=== PATIENT | female | born 1990 | race Caucasian/White ===

== ENCOUNTER 2016-11-23 15:53 | Emergency (ER) | payer OTHER ==
[~2016-11-23] VITALS: Ht 162.6 cm; Wt 50.0 kg
[~2016-11-23 15:53] MED LIST: CYAN100015 IM; LAMI200T PO; LEVO88TA2 PO; LITH300C2 PO; LORA-392 PO; NU-IRON PO; OLANZ20 SL; ZYPR20TA PO; [UNRECOGNIZED DRUG - CODE] PO
[2016-11-23 16:09] VITALS: BP 156/96; PULSE 74; RESP 17; TEMP 98.3; O2SAT 98
[2016-11-23 16:52] LABS: AUTOMATED NEUTROPHIL # 6.8 TH/MM3 (1.8-7.7); BASOPHIL # 0.1 TH/MM3 (0-0.2); BASOPHIL % 0.7 % (0.0-2.0); EOSINOPHIL # 0.1 TH/MM3 (0-0.4); HEMO FLAGS DIFF FINAL; LYMPHOCYTE # 1.9 TH/MM3 (1.0-4.8); MEAN CELL VOLUME 91.3 FL (80.0-100.0); MEAN CORPUSCULAR HEMOGLOBIN 30.5 PG (27.0-34.0); MEAN CORPUSCULAR HGB CONC 33.5 % (32.0-36.0); MONO % 4.9 % (0.0-8.0); NEUT % 73.4 % (16.0-70.0); PLATELET COUNT 357 TH/MM3 (150-450); RED CELL DISTRIBUTION WIDTH 12.8 % (11.6-17.2); WHITE BLOOD COUNT 9.3 TH/MM3 (4.0-11.0)
[2016-11-23 17:18] LABS: ALKALINE PHOSPHATASE 80 U/L (45-117); ALT (GPT) 21 U/L (10-53); ANION GAP 8 MEQ/L (5-15); AST (GOT) 12 U/L (15-37); BLOOD UREA NITROGEN 10 MG/DL (7-18); CHLORIDE 106 MEQ/L (98-107); GLOMERULAR FILTRATION RATE 71 ML/MIN (>89); POTASSIUM 3.7 MEQ/L (3.5-5.1); SODIUM (NA) 141 MEQ/L (136-145); TOTAL BILIRUBIN ADULT 0.3 MG/DL (0.2-1.0)
[2016-11-23 18:42] LABS: AMPHETAMINE, URINE NEG (NEG); BARBITURATES, URINE NEG (NEG); COCAINE, URINE NEG (NEG)
--- NOTE | 2016-11-23 19:06 | PD ---
HPI Chief Complaint: Psychiatric Symptoms Time Seen by Provider: 18:45 Travel History International Travel<30 days: No Contact w/Intl Traveler<30days: No Traveled to known affect area: No History of Present Illness HPI Patient is a 26-year-old female who presents emergency Department under Morales act for suicidal homicidal ideations. Patient states that she's been hearing voices that are telling her to kill herself in her housemates. She states this makes her scared and nervous. She wants to get help so she doesn't do these things. She states that the voices also tell her to hit her head on the floor. She denies any physical complaints at this time. She denies any previous suicide attempt, she denies any formal psychiatric diagnosis in the past. [facility] Past Medical History Anxiety: Yes Cerebrovascular Accident: Yes (at ) Developmental Delay: Yes Diminished Hearing: No Endocrine: No Genitourinary: No Immune Disorder: No Musculoskeletal: No Neurologic: Yes (right hand contracture) Reproductive: No Respiratory: No Immunizations Current: Yes Migraines: No Pancreatitis: Yes Schizophrenia: Yes (HEARING HALLUCINATION SINCE 10 YEARS OLD ) ?: Unknown Past Surgical History Cholecystectomy: Yes Thoracic Surgery: Yes (G-TUBE INSERTION AND REMOVAL) Other Surgery: Yes Social History Alcohol Use: No Tobacco Use: No Substance Use: No Allergies-Medications (Allergen,Severity, Reaction): Coded Allergies: Seafood (Verified Allergy, Severe, Anaphylaxis, 10/16/16) Reported Meds & Prescriptions Reported Meds & Active Scripts Active Zyprexa Zydis (Olanzapine) 20 Mg Tab 20 Mg SL HS [place] Carbonate 300 Mg Cap 300 Mg PO 3 HS Zyprexa (Olanzapine) 20 Mg Tab 20 Mg PO HS Ativan (Lorazepam) 0.5 Mg Tab 0.5 Mg PO BID Lamictal (Lamotrigine) 200 Mg Tab 200 Mg PO BID Levothyroxine (Levothyroxine Sodium) 88 Mcg Tab 88 Mcg PO DAILY Poly-Iron 150 (Polysaccharide Iron Complex) 150 Mg Cap 150 Mg PO DAILY B-12 (Cyanocobalamin) 1,000 Mcg Lozg 1,000 Mcg IM Q30 DAYS Polyethylene Glycol 3350 (Polyethylene Glycol 3350 (Bulk) 1 Gra Gra 3,350 Meq PO DAILY 30 Days Review of Systems Except as stated in HPI: all other systems reviewed are Neg Neurologic: Positive: Other (fracture right upper extremity/ hand) Psychiatric: Positive: Anxiety, Suicidal Ideations, Mood Disorder, Homicidal Ideation Physical Exam Narrative GENERAL: Well-developed, well-nourished, alert female. Resting comfortably in no acute distress. SKIN: Warm and dry. HEAD: Atraumatic. Normocephalic. EYES: Pupils equal and round. No scleral icterus. No injection or drainage. ENT: No nasal bleeding or discharge. Mucous membranes pink and moist. NECK: Trachea midline. No JVD. CARDIOVASCULAR: Regular rate and rhythm. No murmur appreciated. RESPIRATORY: No accessory muscle use. Clear to auscultation. Breath sounds equal bilaterally. GASTROINTESTINAL: Abdomen soft, non-tender, nondistended. Hepatic and splenic margins not palpable. MUSCULOSKELETAL: No obvious deformities. No clubbing. No cyanosis. No edema. NEUROLOGICAL: Awake and alert. No obvious cranial nerve deficits. Motor grossly within normal limits. Normal speech. Right upper extremity contracture. Slight right facial drooping PSYCHIATRIC: Appropriate mood and affect; insight and judgment normal. Data Data Last Documented VS Vital Signs Date Time Temp Pulse Resp B/P Pulse Ox O2 Delivery O2 Flow Rate FiO2 11/23/16 16:09 98.3 74 17 156/96 98 Orders Complete Blood Count With Diff (11/23/16 16:38) Comprehensive Metabolic Panel (11/23/16 16:38) Drug Screen, Random Urine (11/23/16 16:38) Alcohol (Ethanol) (11/23/16 16:38) Psych Screen (11/23/16 16:38) Diet Regular Basic (11/23/16 Dinner) Labs Laboratory Tests Test 11/23/16 11/23/16 16:37 18:20 White Blood Count 9.3 TH/MM3 Red Blood Count 4.60 MIL/MM3 Hemoglobin 14.1 GM/DL Hematocrit 42.0 % Mean Corpuscular Volume 91.3 FL Mean Corpuscular Hemoglobin 30.5 PG Mean Corpuscular Hemoglobin 33.5 % Concent Red Cell Distribution Width 12.8 % Platelet Count 357 TH/MM3 Mean Platelet Volume 7.0 FL Neutrophils (%) (Auto) 73.4 % Lymphocytes (%) (Auto) 20.0 % Monocytes (%) (Auto) 4.9 % Eosinophils (%) (Auto) 1.0 % Basophils (%) (Auto) 0.7 % Neutrophils # (Auto) 6.8 TH/MM3 Lymphocytes # (Auto) 1.9 TH/MM3 Monocytes # (Auto) 0.5 TH/MM3 Eosinophils # (Auto) 0.1 TH/MM3 Basophils # (Auto) 0.1 TH/MM3 CBC Comment DIFF FINAL Differential Comment Sodium Level 141 MEQ/L Potassium Level 3.7 MEQ/L Chloride Level 106 MEQ/L Carbon Dioxide Level 27.0 MEQ/L Anion Gap 8 MEQ/L Blood Urea Nitrogen 10 MG/DL Creatinine 0.96 MG/DL Estimat Glomerular Filtration 71 ML/MIN Rate Random Glucose 127 MG/DL Calcium Level 9.4 MG/DL Total Bilirubin 0.3 MG/DL Aspartate Amino Transf 12 U/L (AST/SGOT) Alanine Aminotransferase 21 U/L (ALT/SGPT) Alkaline Phosphatase 80 U/L Total Protein 7.5 GM/DL Albumin 3.7 GM/DL Ethyl Alcohol Level LESS THAN 3 MG/DL Urine Opiates Screen NEG Urine Barbiturates Screen NEG Urine Amphetamines Screen NEG Urine Benzodiazepines Screen NEG Urine Cocaine Screen NEG Urine Cannabinoids Screen NEG MDM Medical Decision Making Medical Screen Exam Complete: Yes Emergency Medical Condition: Yes Interpretation(s) Vital Signs Date Time Temp Pulse Resp B/P Pulse Ox O2 Delivery O2 Flow Rate FiO2 11/23/16 16:09 98.3 74 17 156/96 98 Differential Diagnosis Mood disorder versus substance abuse versus schizophrenia versus delirium versus psychosis versus other Narrative Course Patient's 26-year-old female who presents emergency Department under Morales act for suicidal and homicidal ideations. Patient appears nervous that she is actually going to follow through with these thoughts. Patient states that the voices in her head are telling her to do these things. She has no other complaints at this time. CBC, chemistry, tox screen are unremarkable. Patient' s vital signs are stable. Patient is medically cleared for psychiatric evaluation at this time. Diagnosis Primary Impression: Medical clearance for psychiatric admission Additional Impressions: Suicidal ideations Homicidal ideation Condition: Stable Lindsay Hernandez Nov 23, 2016 19:06
[2016-11-23 19:31] VITALS: BP 160/96; PULSE 80; RESP 18; O2SAT 98
[2016-11-23] MEDS ORDERED: CLIN1GEL TOPICAL (20:32)
[2016-11-23] MEDS ORDERED: D 101000 (20:40)
[2016-11-23] MEDS ORDERED: LEVOTAB25 PO (20:40)
[2016-11-23] MEDS ORDERED: PREV5000 PO (20:40)
[2016-11-23 22:46] VITALS: BP 116/56; PULSE 81; RESP 17; O2SAT 98
[2016-11-24 02:37] VITALS: BP 129/65; PULSE 52; RESP 17; O2SAT 100
[2016-11-24 06:31] VITALS: BP 107/61; PULSE 61; RESP 17; O2SAT 97
[2016-11-24 10:38] VITALS: BP 143/88; PULSE 87; RESP 18; O2SAT 97
[2016-11-24 14:05] VITALS: BP 142/83; PULSE 78; RESP 18; O2SAT 99
--- NOTE | 2016-11-24 14:39 | PD ---
History of Present Illness Chief Complaint: Psychiatric Symptoms Time Seen by Provider: 14:15 Travel History International Travel<30 Days: No Contact w/Intl Traveler<30days: No Known affected area: No Legal Status Legal Status: Morales Act Morales Act Signed By: Elena Aponte History of Present Illness: History of Present Illness Patient is a 26-year-old female with hx of disruptive mood regulation as well as mood disorder who presents emergency Department under Morales act initiated by ROSINA . As per the report the patient reported hearing voices that are telling her to kill herself. She told the police detective that she was banging her head against a dresser. Patient has had previous visits to ED for similar behaviors. She currently lives in a care home and is unhappy because she is going to be moving to another home soon. Patient was monitored in [facility]. She did not present any behavioral concerns. there was no agitation and no self harming behaviors. She did not present any psychosis.She is alert and oriented. Engages easily with this credit underwriter and frequently states " I'm not fibbing". She states that she needs " to be inpatient for a while because I am under stress". She does not verbalize any current suicidal ideation but states " I don't know if the voices will get worse and I will fell suicidal when I'm in the home". Staff has contacted her mother who is her guardian and who is strongly advocating for us not to hospitalize her as this is a behavior and attention seeking on her part. PFSH Past Medical History Anxiety: Yes Cerebrovascular Accident: Yes (at ) Developmental Delay: Yes Diminished Hearing: No Endocrine: No Genitourinary: No Immune Disorder: No Musculoskeletal: No Neurologic: Yes (right hand contracture) Reproductive: No Respiratory: No Immunizations Current: Yes Migraines: No Pancreatitis: Yes Schizophrenia: Yes (HEARING HALLUCINATION SINCE 10 YEARS OLD ) ?: Unknown Past Surgical History Cholecystectomy: Yes Thoracic Surgery: Yes (G-TUBE INSERTION AND REMOVAL) Other Surgery: Yes Psychiatric History Psychiatric History Hx Psychiatric Treatment: HX OF SCHIZOPHRENIA AND DYSRUPTIVE MOOD D/O. CURRENTLY BEING TREATED WITH PSYCHIATRIC MEDS History of Inpatient Treatment: Yes Guns or firearms in home: No Social History Single female. Lives in a care home. Never . Hx Alcohol Use: No Hx Tobacco Use: No Hx Substance Use: No Hx of Substance Use Treatment: No Allergies-Medications (Allergen,Severity, Reaction): Coded Allergies: Seafood (Verified Allergy, Severe, Anaphylaxis, 11/24/16) Reported Meds & Prescriptions Reported Meds & Active Scripts Active Zyprexa Zydis (Olanzapine) 20 Mg Tab 20 Mg SL HS [place] Carbonate 300 Mg Cap 300 Mg PO 3 HS Ativan (Lorazepam) 0.5 Mg Tab 0.5 Mg PO BID Lamictal (Lamotrigine) 200 Mg Tab 200 Mg PO BID Levothyroxine (Levothyroxine Sodium) 88 Mcg Tab 88 Mcg PO DAILY Poly-Iron 150 (Polysaccharide Iron Complex) 150 Mg Cap 150 Mg PO DAILY B-12 (Cyanocobalamin) 1,000 Mcg Lozg 1,000 Mcg IM Q30 DAYS Polyethylene Glycol 3350 (Polyethylene Glycol 3350 (Bulk) 1 Gra Gra 3,350 Meq PO DAILY 30 Days Reported D 1000 (Cholecalciferol) 1,000 Unit Cap [place] (Levonorgestrel-Ethinyl Estradiol) 0.15-0.03-0.01 Mg Tab 1 Tab PO DAILY Prevident 5000 Sensitive 1.1-5 % (Sodium Fluoride-Potassium Nitr) 1 Pst Pst Unknown Dose PO HS Clindamycin Topical (Clindamycin Phosphate) 1% Gel 1 Applic TOPICAL BID Review of Systems Constitutional: DENIES: Diaphoretic episodes, Fatigue, Fever, Weight gain, Weight loss, Chills, Dizziness, Change in appetite, Night Sweats Endocrine: DENIES: Abnorml menstrual pattern, Heat/cold intolerance, Polydipsia , Polyuria, Polyphagia Eyes: DENIES: Blurred vision, Diplopia, Eye inflammation, Eye pain, Vision loss , Photosensitivity, Double Vision Ears, nose, mouth, throat: DENIES: Tinnitus, Hearing loss, Vertigo, Nasal discharge, Oral lesions, Throat pain, Hoarseness, Ear Pain, Running Nose, Epistaxis, Sinus Pain, Toothache, Odynophagia Respiratory: DENIES: Apneas, Cough, Snoring, Wheezing, Hemoptysis, Sputum production, Shortness of breath Cardiovascular: DENIES: Chest pain, Palpitations, Syncope, Dyspnea on Exertion , PND, Lower Extremity Edema, Orthopnea, Claudication Gastrointestinal: DENIES: Abdominal pain, Black stools, Bloody stools, Constipation, Diarrhea, Nausea, Vomiting, Difficulty Swallowing, Anorexia Genitourinary: DENIES: Abnormal vaginal bleeding, Dysmenorrhea, Dyspareunia, Sexual dysfunction, Urinary frequency, Urinary incontinence, Urgency, Hematuria , Dysuria, Nocturia, Vaginal discharge Musculoskeletal: COMPLAINS OF: Muscle aches Integumentary: DENIES: Abnormal pigmentation, Pruritus, Rash, Nail changes, Breast masses, Breast skin changes, Nipple discharge Hematologic/lymphatic: DENIES: Bruising, Lymphadenopathy Neurologic: COMPLAINS OF: Abnormal gait (has CP) Psychiatric: COMPLAINS OF: Mood changes Exam Alert: Yes [place]: Person (ox3) Mood: Calm Affect: Euthymic Speech: Clear Eye Contact: Normal Memory Intact: Comment (not impaired) Hallucinations: Other (negative) Delusions: No Suicidal: Ideation (no active) Homicidal: Ideation (no active) Insight/Judgement poor. poor MDM Medical Decision Making Medical Record Reviewed: Yes Assessment/Plan 26 year old female under a bA. at this time this patietn does not present any criteria for BA. She does not present any acute psychiatric symptomatology requiring [facility] At this time she will be discharged to care home Follow up with outpatient psychiatrist. Orders Complete Blood Count With Diff (11/23/16 16:38) Comprehensive Metabolic Panel (11/23/16 16:38) Drug Screen, Random Urine (11/23/16 16:38) Alcohol (Ethanol) (11/23/16 16:38) Psych Screen (11/23/16 16:38) Diet Regular Basic (11/23/16 Dinner) Diet Regular Basic (11/24/16 Breakfast) Diet Regular Basic (11/24/16 Lunch) Diet Regular Basic (11/24/16 Dinner) Results Vital Signs Date Time Temp Pulse Resp B/P Pulse Ox O2 Delivery O2 Flow Rate FiO2 11/24/16 14:05 78 18 142/83 99 Room Air 11/24/16 10:38 87 18 143/88 97 Room Air 11/24/16 06:31 61 17 107/61 97 11/24/16 02:37 52 17 129/65 100 Room Air 11/23/16 22:46 81 17 116/56 98 Room Air 11/23/16 19:31 80 18 160/96 98 Room Air 11/23/16 16:09 98.3 74 17 156/96 98 Laboratory Tests Test 11/23/16 11/23/16 16:37 18:20 White Blood Count 9.3 Red Blood Count 4.60 Hemoglobin 14.1 Hematocrit 42.0 Mean Corpuscular Volume 91.3 Mean Corpuscular Hemoglobin 30.5 Mean Corpuscular Hemoglobin 33.5 Concent Red Cell Distribution Width 12.8 Platelet Count 357 Mean Platelet Volume 7.0 Neutrophils (%) (Auto) 73.4 Lymphocytes (%) (Auto) 20.0 Monocytes (%) (Auto) 4.9 Eosinophils (%) (Auto) 1.0 Basophils (%) (Auto) 0.7 Neutrophils # (Auto) 6.8 Lymphocytes # (Auto) 1.9 Monocytes # (Auto) 0.5 Eosinophils # (Auto) 0.1 Basophils # (Auto) 0.1 CBC Comment DIFF FINAL Differential Comment Sodium Level 141 Potassium Level 3.7 Chloride Level 106 Carbon Dioxide Level 27.0 Anion Gap 8 Blood Urea Nitrogen 10 Creatinine 0.96 Estimat Glomerular Filtration 71 Rate Random Glucose 127 Calcium Level 9.4 Total Bilirubin 0.3 Aspartate Amino Transf 12 (AST/SGOT) Alanine Aminotransferase 21 (ALT/SGPT) Alkaline Phosphatase 80 Total Protein 7.5 Albumin 3.7 Ethyl Alcohol Level LESS THAN 3 Urine Opiates Screen NEG Urine Barbiturates Screen NEG Urine Amphetamines Screen NEG Urine Benzodiazepines Screen NEG Urine Cocaine Screen NEG Urine Cannabinoids Screen NEG Diagnosis Primary Impression: Disruptive mood dysregulation disorder Additional Impression: Suicidal ideations Ruled Out: Homicidal ideation Psychiatrically Cleared: Yes Disposition: 01 DISCHARGE HOME Condition: Stable Problem Qualifiers Xiomara Fermin Nov 24, 2016 14:39
== END 2016-11-24 16:50 | disposition home or self-care (01) ==
LOC: NEPJ 15:53
DX: F34.81 Disruptive mood dysregulation disorder (principal)
CPT/HCPCS: 80053; 80307; 80320; 85025; 99283

== ENCOUNTER 2016-11-24 20:27 | Emergency (ER) | payer OTHER ==
[~2016-11-24] VITALS: Ht 154.9 cm; Wt 55.0 kg
[~2016-11-24 20:27] MED LIST changes: +CLIN1GEL TOPICAL; +D 101000; +LEVOTAB25 PO; +PREV5000 PO; -ZYPR20TA PO
--- NOTE | 2016-11-24 20:47 | PD ---
HPI Chief Complaint: psych Time Seen by Provider: 20:45 Travel History International Travel<30 days: No Contact w/Intl Traveler<30days: No History of Present Illness HPI 26-year-old female with a history of schizophrenia presents to the emergency Department under Morales act for suicidal and homicidal ideations. The patient states that she has recently begun to hear voices in her head that tell her to harm herself and to harm the other people at her correction. She denies any attempts to harm herself, denies any ingestion of substances. She complains of mild headache. She denies any fever, chills, nausea, vomiting, chest pain, shortness breath, abdominal pain, lightheadedness, dizziness. Denies alcohol or drug use. Denies . No other complaints. PFSH Past Medical History Anxiety: Yes Cerebrovascular Accident: Yes (at ) Developmental Delay: Yes Diminished Hearing: No Endocrine: No Genitourinary: No Immune Disorder: No Musculoskeletal: No Neurologic: Yes (right hand contracture) Reproductive: No Respiratory: No Immunizations Current: Yes Migraines: No Pancreatitis: Yes Schizophrenia: Yes (HEARING HALLUCINATION SINCE 10 YEARS OLD ) Past Surgical History Cholecystectomy: Yes Thoracic Surgery: Yes (G-TUBE INSERTION AND REMOVAL) Other Surgery: Yes Social History Alcohol Use: No Tobacco Use: No Substance Use: No Allergies-Medications (Allergen,Severity, Reaction): Coded Allergies: Seafood (Verified Allergy, Severe, Anaphylaxis, 10/16/16) Reported Meds & Prescriptions Reported Meds & Active Scripts Active Zyprexa Zydis (Olanzapine) 20 Mg Tab 20 Mg SL HS [place] Carbonate 300 Mg Cap 300 Mg PO 3 HS Ativan (Lorazepam) 0.5 Mg Tab 0.5 Mg PO BID Lamictal (Lamotrigine) 200 Mg Tab 200 Mg PO BID Levothyroxine (Levothyroxine Sodium) 88 Mcg Tab 88 Mcg PO DAILY Poly-Iron 150 (Polysaccharide Iron Complex) 150 Mg Cap 150 Mg PO DAILY B-12 (Cyanocobalamin) 1,000 Mcg Lozg 1,000 Mcg IM Q30 DAYS Polyethylene Glycol 3350 (Polyethylene Glycol 3350 (Bulk) 1 Gra Gra 3,350 Meq PO DAILY 30 Days Reported D 1000 (Cholecalciferol) 1,000 Unit Cap [place] (Levonorgestrel-Ethinyl Estradiol) 0.15-0.03-0.01 Mg Tab 1 Tab PO DAILY Prevident 5000 Sensitive 1.1-5 % (Sodium Fluoride-Potassium Nitr) 1 Pst Pst Unknown Dose PO HS Clindamycin Topical (Clindamycin Phosphate) 1% Gel 1 Applic TOPICAL BID Review of Systems Except as stated in HPI: all other systems reviewed are Neg Physical Exam Narrative GENERAL: Well-nourished and well-developed pleasant female patient in no acute distress. SKIN: Warm and dry. HEAD: Normocephalic and atraumatic. EYES: No injection, drainage, or hyphema noted. PERRLA. EOMI. ENT: No nasal drainage noted. Oropharynx is clear. NECK: Supple and the trachea is midline. CARDIOVASCULAR: Regular rate and rhythm. RESPIRATORY: Breath sounds are equal bilaterally with no accessory muscle use, wheezing, rhonchi, or crackles. GASTROINTESTINAL: Abdomen is soft, non-tender, and nondistended. MUSCULOSKELETAL: No obvious deformities, swelling, cyanosis, or ecchymosis is present throughout the upper and lower extremities. Patient has full range of motion without any signs of neurovascular compromise. NEUROLOGICAL: Awake, alert, and oriented. Normal speech and gait. Cranial nerves are grossly intact. Data Data Orders Complete Blood Count With Diff (11/24/16 20:44) Comprehensive Metabolic Panel (11/24/16 20:44) Drug Screen, Random Urine (11/24/16 20:44) Ed Urine Pregnancytest Poc (11/24/16 20:44) Alcohol (Ethanol) (11/24/16 20:44) Psych Screen (11/24/16 20:44) MDM Medical Decision Making Medical Screen Exam Complete: Yes Emergency Medical Condition: Yes Differential Diagnosis Differential: Depression versus adjustment reaction versus anxiety versus PTSD versus psychosis NOS versus mood disorder NOS versus substance induced mood disorder versus ODD versus adjustment reaction versus schizophrenia versus bipolar disorder versus schizoaffective versus electrolyte abnormality versus dementia versus malingering. Narrative Course Patient presents under a Morales act. Physical examination and vital signs are essentially unremarkable. Patient has no medical complaints to report. Psych screen has been ordered. If the laboratory results are unremarkable, the patient will be medically cleared for psychiatric evaluation and disposition. Diagnosis Primary Impression: Schizophrenia, paranoid type Ayleen Mercer Nov 24, 2016 20:47
[2016-11-24 20:52] VITALS: BP 154/79; PULSE 70; RESP 16; TEMP 98.2; O2SAT 100
[2016-11-24 21:04] LABS: AUTOMATED NEUTROPHIL # 6.8 TH/MM3 (1.8-7.7); BASOPHIL # 0.1 TH/MM3 (0-0.2); BASOPHIL % 0.8 % (0.0-2.0); EOSINOPHIL # 0.1 TH/MM3 (0-0.4); HEMATOCRIT 40.5 % (35.0-46.0); HEMO FLAGS DIFF FINAL; LYMPH % 23.9 % (9.0-44.0); LYMPHOCYTE # 2.4 TH/MM3 (1.0-4.8); MEAN CELL VOLUME 89.9 FL (80.0-100.0); MEAN CORPUSCULAR HEMOGLOBIN 30.6 PG (27.0-34.0); NEUT % 67.3 % (16.0-70.0); PLATELET COUNT 395 TH/MM3 (150-450); RED BLOOD COUNT 4.51 MIL/MM3 (4.00-5.30); RED CELL DISTRIBUTION WIDTH 12.6 % (11.6-17.2)
[2016-11-24 21:24] LABS: ANION GAP 8 MEQ/L (5-15)
[2016-11-24 21:27] LABS: ALKALINE PHOSPHATASE 75 U/L (45-117); ALT (GPT) 20 U/L (10-53); AST (GOT) 12 U/L (15-37); BLOOD UREA NITROGEN 9 MG/DL (7-18); CHLORIDE 106 MEQ/L (98-107); GLOMERULAR FILTRATION RATE 83 ML/MIN (>89); POTASSIUM 3.6 MEQ/L (3.5-5.1); SODIUM (NA) 141 MEQ/L (136-145); TOTAL BILIRUBIN ADULT 0.3 MG/DL (0.2-1.0)
[2016-11-24 22:50] LABS: AMPHETAMINE, URINE NEG (NEG); BARBITURATES, URINE NEG (NEG); COCAINE, URINE NEG (NEG)
[2016-11-25 06:05] VITALS: BP 151/99; PULSE 70; RESP 18; O2SAT 98
[2016-11-25 08:25] VITALS: BP 173/100; PULSE 77; RESP 20; TEMP 98.4; O2SAT 98
--- NOTE | 2016-11-25 13:23 | PD.CONS ---
Provisional Diagnosis Admission Date 11/24/2016 Cameron I. 1. Adjustment disorder, unspecified 2. History of schizophrenia, presently stable Cameron II. Deferred Cameron V. GAF is 45 presently History of Present Illness Service Psychiatry Consult Requested By Emergency department Reason for Consult Morales act Primary Care Physician Stephanie Dutton MD HPI Ms. Sam is a 26-year-old female with a history of adjustment disorder and schizophrenia who presents under a Morales act alleging that the patient was hiding in the closet and was endorsing auditory hallucinations. The patient was evaluated yesterday in the emergency department by nurse practitioner Zander and returned to her correction at that time. Patient is well known to me; she has a history endorsing command auditory hallucinations as an attention seeking ploy and was last hospitalized, in part under my care, in July of last year. Electronic medical record reviewed. Patient seen and examined. Chart reviewed. Case discussed with nurse in the J- pod. Per nursing staff, no evidence of any suicidality or homicidality while under observation in the J-pod. She has not appeared to act upon any auditory hallucinations while in the J-pod. On my examination today, the patient appears euthymic. She does not appear internally stimulated. She says that she is experiencing "voices, adult voices." She insinuates, although she does not explicitly say, that these are command in nature. She denies any desire to injure herself or others. She denies any suicidal or homicidal planning. No issues with mood. Patient appears generally to be at her psychiatric baseline. She does admit that there has been some stress at her correction and also her outpatient psychiatrist, Dr. Dillon, has recently closed his outpatient practice. I note his last visit with patient was about a week ago. Past psychiatric, family, chemical dependency and social history are unchanged from previous encounters. I have obtained collateral from patient's mother Ms. Holcomb. Mother articulates that patient's behaviors that led to her being Morales acted are, in mother's opinion, part of patient's typical attention seeking ploys. She notes , in particular, that they are "same old, same old." Mother notes that she is working with patient's current correction to have the patient moved to a higher level correction where they can more intensively apply patient's behavior plan to cope with her attention seeking behaviors. It is mother's strong preference that the patient be returned to her correction today so as not to reinforce patient's attention seeking behaviors. Review of Systems ROS Limitations: Poor Historian Other No reported physical complaints. Past Family Social History Coded Allergies: Seafood (Verified Allergy, Severe, Anaphylaxis, 11/24/16) Past Medical History See electronic medical record Active Scripts Olanzapine Odt (Zyprexa Zydis)20 Mg Tab20 Mg SL HS #30 TAB Ref 2 Prov:Donny Dillon MD 11/18/16 [place] Carbonate 300 Mg [id number] Mg PO 3 hs #90 CAP Ref 2 Prov:Donny Dillon MD 11/17/16 Lorazepam (Ativan)0.5 Mg Tab0.5 Mg PO BID #60 TAB Ref 2 Prov:Donny Dillon MD 11/17/16 Lamotrigine (Lamictal)200 Mg [id number] Mg PO BID #60 TAB Ref 2 Prov:Donny Dillon MD 11/17/16 Levothyroxine 88 Mcg Tab88 Mcg PO DAILY #30 TAB Ref 2 Prov:Donny Dillon MD 11/17/16 Polysaccharide Iron Complex (Poly-Iron 150)150 Mg Pzg525 Mg PO DAILY #30 CAP Ref 0 Prov:Donny Dillon MD 09/21/16 Cyanocobalamin (B-12)1,000 Mcg Lozg1,000 Mcg IM q30 days #1 BOTTLE Ref 0 Prov:Donny Dillon MD 09/21/16 Polyethylene Glycol 3350 (Bulk (Polyethylene Glycol 3350)1 Gra Gra3,350 Meq PO DAILY 30 Days Prov:Donny Dillon MD 09/21/16 Reported Medications Cholecalciferol (D 1000)1,000 Unit Cap 11/23/16 Levonorgestrel-Ethinyl Estradiol (Daysee)0.15-0.03-0.01 Mg Tab1 Tab PO DAILY # 91 TAB Ref 0 11/23/16 Sodium Fluoride-Potassium Nitr (Prevident 5000 Sensitive 1.1-5 %)1 Pst PstUnknown Dose PO HS 11/23/16 Clindamycin Topical 1% Gel1 Applic TOPICAL BID #30 GM Ref 0 11/23/16 Discontinued Scripts Olanzapine (Zyprexa)20 Mg Tab20 Mg PO HS #30 TAB Ref 2 Prov:Donny Dillon MD 11/17/16 Family History Unchanged from previous assessments Social History Unchanged from previous assessments Patient's Strengths (min. 2) Supportive mother. Structured living environment. Physical Exam Physical examination completed by ED provider. On my examination today, patient appears to be in no acute physical distress. No new motoric abnormalities noted. Labs and vital signs reviewed. Vital Signs Vital Signs Date Time Temp Pulse Resp B/P Pulse Ox O2 Delivery O2 Flow Rate FiO2 11/25/16 08:25 98.4 77 20 173/100 98 Room Air Lab Results Item Value Date Time White Blood Count 10.0 TH/MM3 11/24/162049 Hemoglobin 13.8 GM/DL 11/24/162049 Platelet Count 395 TH/MM3 11/24/162049 Sodium Level 141 MEQ/L 11/24/162049 Potassium Level 3.6 MEQ/L 11/24/162049 Chloride Level 106 MEQ/L 11/24/162049 Carbon Dioxide Level 27.0 MEQ/L 11/24/162049 Blood Urea Nitrogen 9 MG/DL 11/24/162049 Creatinine 0.84 MG/DL 11/24/162049 Aspartate Amino Transf (AST/SGOT) 12 U/L L 11/24/162049 Alanine Aminotransferase (ALT/SGPT) 20 U/L 11/24/162049 Alkaline Phosphatase 75 U/L 11/24/162049 Urine toxicology negative. Mental Status Examination Patient is in hospital attire. She is fairly well groomed and maintaining basic hygiene. She is awake and alert and oriented to person and hospital. No new motoric abnormalities noted. Speech is within normal limits for rate, tone and volume. Mood is fair and affect is childlike. Thought process linear. No loosening of associations. No evident delusions. Patient describes hallucinatory phenomena as detailed above but does not appear at all internally stimulated. The patient denies any suicidal or homicidal ideation, intent or plan on direct questioning. Insight and judgment are poor, chronically so. Previous Suicide Attempts: No Previous Homicide Attempts: No Assessment & Plan Problem List: (1) Adjustment disorder ICD Code: F43.20 (2) History of schizophrenia ICD Code: Z86.59 Assessment & Plan This is a 26-year-old female with psychiatric history as detailed above who presents under a Morales act from her correction. This is the patient' s second presentation and has many days. The patient is well-known to me and has a history of reporting command auditory hallucinations as an attention seeking ploy. I suspect her reports of these today are more of the same, and I have captured this behavior with the adjustment disorder diagnosis. There is no evidence of any internal stimulation, and the patient denies any desire to injure herself or anyone else, nor does it seem like these purported voices are particularly influential as she has managed to refrain from injuring herself or anyone else during her period of observation in the J-pod. I concur with the patient's mother that admitting the patient to the inpatient psychiatric unit at this time would simply reinforce the undesirable behavior and, as such, be actively counterproductive to patient's treatment plan and case. I will therefore lift the Morales Act and discharge her back to her correction. I see that Dr. Dillon has made provisions for patient's subsequent outpatient care, and the patient should continue her current medications and follow up outpatient as arranged. Patient to return to psychiatric emergency room for any concerning psychiatric symptoms. Case d/w RN in J-Pod. Thank you very much for this consultation. Problem Qualifiers (1) Adjustment disorder: Qualified Code: F43.20 - Adjustment disorder, unspecified type Abhijit Jaramillo MD Nov 25, 2016 13:23
== END 2016-11-25 20:50 | disposition home or self-care (01) ==
LOC: NEPA 20:27 → NEPJ 11-25 20:50
DX: F43.20 Adjustment disorder, unspecified (principal); Z86.73 Personal history of transient ischemic attack (TIA), and cerebral infarction without residual deficits; F20.9 Schizophrenia, unspecified
CPT/HCPCS: 80053; 80307; 80320; 84703; 85025; 99283

== ENCOUNTER 2016-11-26 14:27 | Inpatient (IN) | payer OTHER ==
[~2016-11-26] VITALS: Ht 170.2 cm; Wt 58.9 kg
[2016-11-26 14:29] VITALS: BP 143/91; PULSE 97; RESP 20; TEMP 98; O2SAT 96
[2016-11-26] MEDS ORDERED: BENZTROPINE MESYLATE 1 MG TAB PO PRN (15:00)
[2016-11-26] MEDS ORDERED: ALUMINUM/MAGNESIUM/SIMETH 30 ML CUP PO PRN (15:00)
[2016-11-26] MEDS ORDERED: MAGNESIUM HYDROXIDE SUSP 30 ML CUP PO PRN (15:00)
[2016-11-26] MEDS ORDERED: LORazepam 1 MG TAB PO PRN (15:00)
[2016-11-26] MEDS ORDERED: BENZTROPINE MESYLATE 2 MG/2 ML VIAL IM PRN (15:00)
[2016-11-26] MEDS ORDERED: LORazepam 2 MG/ML VIAL IM PRN (15:00)
[2016-11-26] MEDS ORDERED: diphenhydrAMINE HCL 50 MG CAP PO PRN (15:00)
--- NOTE | 2016-11-26 15:01 | HHI.HP ---
Provisional Diagnosis Admission Date 11/26/2016 Register I. 1. Adjustment disorder, unspecified 2. History of schizophrenia, presently stable Register II. Deferred Register V. GAF is 40 presently Certification of Person's Competence To Provide Express and Informed Consent I have personally examined Yissel Maria , a person being served at [facility] on, Nov 26, 2016 15:01. Express and informed consent means consent voluntarily given in writing, by a competent person, after sufficient explanation and disclosure of the subject matter involved to enable the person to make a knowing and willful decision without any element of force, fraud, deceit, duress, or other form of constraint or coercion. This person is 18 years of age or older, is not now known to be incompetent to consent to treatment with a guardian advocate, and does not have a health care surrogate or proxy currently making medical treatment decisions. I have found this person to be one of the following: [] Competent to provide express and informed consent, as defined above, for voluntary admission to this facility and is competent to provide express and informed consent for treatment. He/she has the consistent capacity to make well reasoned, willful, and knowing decisions concerning his or her medical or mental health treatment. The person fully and consistently understands the purpose of the admission for examination/placement and is fully capable of personally exercising all rights assured [place] [x] Incompetent to provide express and informed consent to voluntary admission, and this is incompetent to provide express and informed consent to treatment. The person must be transferred to involuntary status and a petition for a guardian advocate filed with the Circuit Court. [] Refusing to provide express and informed consent to voluntary admission but is competent to provide express and informed consent for treatment. The person must be discharged or transferred to involuntary status. Form shall be completed within 24 hours of a person's arrival at the receiving facility and filed in the clinical record of each person: 1. Admitted on a voluntary basis 2. Permitted to provide express and informed consent to his/her own treatment 3. Allowed to transfer from involuntary to voluntary status 4. Prior to permitting a person to consent to his or her own treatment after having been previously found incompetent to consent to treatment. History of Present Illness Capacity: Lacks Capacity HPI Ms. Maria is a 26-year-old female with a history of adjustment disorder and schizophrenia who presents under a Morales act for the third time in 4 days alleging that she is hearing voices telling her to kill her roommate's at the care home. Patient also allegedly self injured by banging her head against the wall. I saw the patient in consultation yesterday and lifted her Morales act because she has a history of voicing command auditory hallucinations and even engaging in self-injurious behavior as an attention seeking ploy and in order to get admitted to the inpatient psychiatric unit.. Additionally, patient's mother and guardian had requested that the patient not be admitted as admission reinforces this attention seeking behavior. Reviewing the electronic medical record, she was admitted most recently, and part under my care, in July of last year. Patient seen and examined. Chart reviewed. Case discussed with nurse in the J- pod. On my examination today, the patient says "Hey doc, same reason. I don't think going home is the best idea. I tried to give the medications that chance to work, but nothing changed. I'm telling the truth doc. Can we put me on the unit with all the cameras?" Patient is hoping to go to the high acuity 2700 unit, I suspect because it affords greater attention. She insists she is still experiencing CAH, although she does not appear internally stimulated. She does not describe any current SI or HI but insists that she cannot contract for safety in the community. The remainder of the psychiatric ROS is negative. Past psychiatric, family, chemical dependency, social history have been obtained repeatedly during previous encounters and are unchanged today. I did speak with patient's mother, Ms. Holcomb. Given the apparent persistence of patient's behaviors, she agrees that hospitalization at this juncture is likely necessary. She asks that we take steps to minimize attention paid to patient's behaviors, though, to avoid exacerbating the problem. Review of Systems ROS Limitations: Poor Historian Other No physical complaints today Past Psych History Psychological trauma history No reported trauma history Violence risk - others (6 mos) Indeterminate Violence risk - self (6 mos) Indeterminate Substance Abuse History Drugs/Alcohol past 12 months No reported drug or alcohol use Past Family Social History Coded Allergies: Seafood (Verified Allergy, Severe, Anaphylaxis, 11/24/16) Past Medical History See electronic medical record Active Scripts Olanzapine Odt (Zyprexa Zydis)20 Mg Tab20 Mg SL HS #30 TAB Ref 2 Prov:Donny Dillon MD 11/18/16 [place] Carbonate 300 Mg Pes962 Mg PO 3 hs #90 CAP Ref 2 Prov:Donny Dillon MD 11/17/16 Lorazepam (Ativan)0.5 Mg Tab0.5 Mg PO BID #60 TAB Ref 2 Prov:Donny Dillon MD 11/17/16 Lamotrigine (Lamictal)200 Mg Ban284 Mg PO BID #60 TAB Ref 2 Prov:Donny Dillon MD 11/17/16 Levothyroxine 88 Mcg Tab88 Mcg PO DAILY #30 TAB Ref 2 Prov:Donny Dillon MD 11/17/16 Polysaccharide Iron Complex (Poly-Iron 150)150 Mg Wpx547 Mg PO DAILY #30 CAP Ref 0 Prov:Donny Dillon MD 09/21/16 Cyanocobalamin (B-12)1,000 Mcg Lozg1,000 Mcg IM q30 days #1 BOTTLE Ref 0 Prov:Donny Dillon MD 09/21/16 Polyethylene Glycol 3350 (Bulk (Polyethylene Glycol 3350)1 Gra Gra3,350 Meq PO DAILY 30 Days Prov:Donny Dillon MD 09/21/16 Reported Medications Cholecalciferol (D 1000)1,000 Unit Cap 11/23/16 Levonorgestrel-Ethinyl Estradiol (Daysee)0.15-0.03-0.01 Mg Tab1 Tab PO DAILY # 91 TAB Ref 0 11/23/16 Sodium Fluoride-Potassium Nitr (Prevident 5000 Sensitive 1.1-5 %)1 Pst PstUnknown Dose PO HS 11/23/16 Clindamycin Topical 1% Gel1 Applic TOPICAL BID #30 GM Ref 0 11/23/16 Discontinued Scripts Olanzapine (Zyprexa)20 Mg Tab20 Mg PO HS #30 TAB Ref 2 Prov:Donny Dillon MD 11/17/16 Family History See above Social History Patient is care home resident. Mother is supportive. Patient's Strengths (min. 2) In good physical health. Verbally fluent. Physical Exam Physical examination completed by ED provider. On my examination today, patient is in no distress. No abnormal motor movements noted. Labs and vital signs reviewed. Vital Signs Vital Signs Date Time Temp Pulse Resp B/P Pulse Ox O2 Delivery O2 Flow Rate FiO2 11/26/16 14:29 98.0 97 20 143/91 96 Room Air Lab Results Item Value Date Time White Blood Count 10.0 TH/MM3 11/24/162049 Hemoglobin 13.8 GM/DL 11/24/162049 Platelet Count 395 TH/MM3 11/24/162049 Sodium Level 141 MEQ/L 11/24/162049 Potassium Level 3.6 MEQ/L 11/24/162049 Chloride Level 106 MEQ/L 11/24/162049 Blood Urea Nitrogen 9 MG/DL 11/24/162049 Creatinine 0.84 MG/DL 11/24/162049 Aspartate Amino Transf (AST/SGOT) 12 U/L L 11/24/162049 Alanine Aminotransferase (ALT/SGPT) 20 U/L 11/24/162049 Alkaline Phosphatase 75 U/L 11/24/162049 Ethyl Alcohol Level LESS THAN 3 MG/DL 11/24/162049 ED pointed care test was negative on the Mental Status Examination Patient is casually dressed. She is fairly well groomed. She is awake and alert and oriented to person and hospital. No abnormal motor movements noted. Speech is within normal limits for rate, tone and volume. Language and fund of knowledge seem average for age. Mood is fair and affect is childlike. Thought process linear. No loosening of associations. No evident delusions. Reports command auditory hallucinations as noted above. Patient alleged to have thoughts of hurting self and others in response to command auditory hallucinations. She does not currently have any SI or HI but cannot contract for safety on an outpatient basis. Insight and judgment are poor. Previous Suicide Attempts: No Previous Homicide Attempts: No Assessment & Plan Problem List: (1) Adjustment disorder ICD Code: F43.20 (2) History of schizophrenia ICD Code: Z86.59 Assessment & Plan This is a 26-year-old female with psychiatric history as detailed above who presents for the third time in 4 days under a Morales act alleging that she is experiencing command auditory hallucinations. She is also upped the ante somewhat by engaging in some self-injurious behavior. She engages in these behaviors as an attention seeking ploy, and there is a behavioral management plan in place on an outpatient basis, although this is apparently presently inadequate to manage her problematic behaviors. Consequently, and given the persistence of her behaviors, we will admit the patient to the inpatient psychiatric unit. --Admit inpatient --Involuntary status. I've completed first opinion. Consult for second opinion. Request healthcare surrogate and guardian advocate. --Holmes to minimize reward for attention seeking behaviors, e.g. no transfer to 2700, no 1:1 unless absolutely necessary for safety. --Continue lithium, Zyprexa and Lamictal --Ativan as needed for anxiety, Benadryl as needed for sleep, Cogentin as needed for EPS --Physical therapy consult. Falls precautions. --Vitals every shift --Counselor to see --Disposition planning --Estimated length of stay: 5-7 days Discharge Planning Pending outcome of observation Request HC Surrog/Guard Advoc?: Yes Abhijit Jaramillo MD Nov 26, 2016 15:01
[2016-11-26 15:15] VITALS: BP 145/92; PULSE 87; RESP 18; TEMP 92.1; O2SAT 98
--- NOTE | 2016-11-26 15:19 | PD ---
HPI Chief Complaint: Psychiatric Symptoms Time Seen by Provider: 15:16 Travel History International Travel<30 days: No Contact w/Intl Traveler<30days: No Traveled to known affect area: No History of Present Illness HPI 26-year-old female presents to the emergency Department under Morales act by local police for suicidal/homicidal ideations. Patient states she's been hearing voices in her head that she was 10 years old. She states that since she became an adult, the voices have also become adult voices. They tell her to kill herself and to kill the people in her long term. The patient was seen here 2 days ago in the emergency department for the same issue. Labs were completed at that time. Patient denies any medical complaints at this time. Patient denies any harm to herself or anybody else. PFSH Past Medical History Anxiety: Yes Cerebrovascular Accident: Yes (at ) Developmental Delay: Yes Diminished Hearing: No Endocrine: No Genitourinary: No Immune Disorder: No Musculoskeletal: No Neurologic: Yes (right hand contracture) Reproductive: No Respiratory: No Immunizations Current: Yes Migraines: No Pancreatitis: Yes Schizophrenia: Yes (HEARING HALLUCINATION SINCE 10 YEARS OLD ) Past Surgical History Cholecystectomy: Yes Thoracic Surgery: Yes (G-TUBE INSERTION AND REMOVAL) Other Surgery: Yes Social History Alcohol Use: No Tobacco Use: No Substance Use: No Allergies-Medications (Allergen,Severity, Reaction): Coded Allergies: Seafood (Verified Allergy, Severe, Anaphylaxis, 11/24/16) Reported Meds & Prescriptions Reported Meds & Active Scripts Active Zyprexa Zydis (Olanzapine) 20 Mg Tab 20 Mg SL HS [place] Carbonate 300 Mg Cap 300 Mg PO 3 HS Ativan (Lorazepam) 0.5 Mg Tab 0.5 Mg PO BID Lamictal (Lamotrigine) 200 Mg Tab 200 Mg PO BID Levothyroxine (Levothyroxine Sodium) 88 Mcg Tab 88 Mcg PO DAILY Poly-Iron 150 (Polysaccharide Iron Complex) 150 Mg Cap 150 Mg PO DAILY B-12 (Cyanocobalamin) 1,000 Mcg Lozg 1,000 Mcg IM Q30 DAYS Polyethylene Glycol 3350 (Polyethylene Glycol 3350 (Bulk) 1 Gra Gra 3,350 Meq PO DAILY 30 Days Reported D 1000 (Cholecalciferol) 1,000 Unit Cap [place] (Levonorgestrel-Ethinyl Estradiol) 0.15-0.03-0.01 Mg Tab 1 Tab PO DAILY Prevident 5000 Sensitive 1.1-5 % (Sodium Fluoride-Potassium Nitr) 1 Pst Pst Unknown Dose PO HS Clindamycin Topical (Clindamycin Phosphate) 1% Gel 1 Applic TOPICAL BID Review of Systems Except as stated in HPI: all other systems reviewed are Neg Physical Exam Narrative GENERAL: Well-developed well-nourished female patient ambulatory. Afebrile. SKIN: Warm and dry. HEAD: Normocephalic. Atraumatic. EYES: No scleral icterus. No injection or drainage. NECK: Supple, trachea midline. No JVD or lymphadenopathy. CARDIOVASCULAR: Regular rate and rhythm without murmurs, gallops, or rubs. RESPIRATORY: Breath sounds equal bilaterally. No accessory muscle use. Lungs sounds clear to auscultation. GASTROINTESTINAL: Abdomen soft, non-tender, nondistended. MUSCULOSKELETAL: No cyanosis, or edema. PSYCHIATRIC: No delusional thought processes. No hallucinations. Data Data Last Documented VS Vital Signs Date Time Temp Pulse Resp B/P Pulse Ox O2 Delivery O2 Flow Rate FiO2 11/26/16 14:29 98.0 97 20 143/91 96 Room Air Orders Psych Screen (11/26/16 14:45) Lamotrigine (Lamictal) (11/26/16 21:00) Levothyroxine (Synthroid) (11/27/16 09:00) [place] Carbonate ([place] Carbonate) (11/26/16 21:00) Lorazepam (Ativan) (11/26/16 21:00) Olanzapine Odt (Zyprexa Zydis Odt) (11/26/16 21:00) Polyethylene Glycol (Miralax) (11/27/16 09:00) Polysaccharide Iron Complex (Nu-Iron) (11/27/16 09:00) (Nf) Clindamycin Topical (11/26/16 21:00) (Nf) Cyanocobalamin (B-12) (11/26/16 15:00) (Nf) Levonorgestrel-Ethinyl Estradiol (D (11/27/16 09:00) Admit To Inpatient Psych (11/26/16 ) Vital Signs (Adult) ALESSIA.Q12H.E (11/26/16 14:57) Activity Oob Ad Griselda (11/26/16 14:57) Level Of Observation (Psych) (11/26/16 14:57) Aims-Abnormal Invol Move Scale ONCE (11/26/16 14:57) Diet Regular Basic (11/26/16 Dinner) Lorazepam (Ativan) (11/26/16 15:00) Lorazepam Inj (Ativan Inj) (11/26/16 15:00) Diphenhydramine (Benadryl) (11/26/16 15:00) Acetaminophen (Tylenol) (11/26/16 15:00) Magnesium Hydroxide Liq (Milk Of Magnesi (11/26/16 15:00) Al-Mag Hy-Si 40-40-4 Mg/Ml Liq (Mag-Al P (11/26/16 15:00) Nicotine 21 Mg Patch.24 Hr (Habitrol 21 (11/27/16 09:00) Benztropine (Cogentin) (11/26/16 15:00) Benztropine Inj (Cogentin Inj) (11/26/16 15:00) Lipid Profile (11/27/16 06:00) Hemoglobin (Hgb) A1c (11/27/16 06:00) Consult Psychiatry (11/26/16 ) Remove Old Patch (11/27/16 09:00) MDM Medical Decision Making Medical Screen Exam Complete: Yes Emergency Medical Condition: Yes Medical Record Reviewed: Yes Differential Diagnosis Schizophrenia versus bipolar versus depression versus anxiety Narrative Course 26-year-old female presents to the emergency department under Morales act for hearing voices and suicidal/homicidal ideations. Patient had lab work done 2 days ago in the emergency department. At that time, CBC was unremarkable. CMP showed no acute abnormalities. Urine drug screen was negative. Alcohol level is less than 3. Patient has no medical complaints at this time. Patient is medically cleared for psychiatric screening and disposition. Mental health screening discussed with the patient. Psychiatric screen ordered. Diagnosis Primary Impression: Schizophrenia, paranoid type Additional Instructions: Patient is medically cleared for psychiatric screening and disposition. Condition: Stable Vernell Lim JERARDO Nov 26, 2016 15:19
[2016-11-26] MEDS ORDERED: CYANOCOBALAMIN 1000 MCG/ML VIAL IM SCH (17:00)
[2016-11-26 17:47] VITALS: BP 133/86; PULSE 57; RESP 16; TEMP 97.8
[2016-11-26] MEDS: ACETAMINOPHEN 325 MG TAB PO PRN (18:03)
[2016-11-26 20:24] VITALS: BP 123/63; PULSE 61; RESP 17; TEMP 98.3; O2SAT 99
[2016-11-26] MEDS: OLANZapine ODT 20 MG TAB SL SCH (20:58)
[2016-11-26] MEDS: lamoTRIgine 100 MG TAB PO SCH (20:58)
[2016-11-26] MEDS: LORazepam 0.5 MG TAB PO SCH (20:59)
[2016-11-26] MEDS: LITHIUM CARBONATE 300 MG CAP PO SCH (20:59)
[2016-11-26] MEDS: CLINDAMYCIN PHOS 1% TOPICAL SCH (21:00)
[2016-11-27 05:46] VITALS: BP 118/67; PULSE 78; RESP 16; TEMP 97.6
[2016-11-27] MEDS: LEVOTHYROXINE SODIUM 88 MCG TAB PO SCH (08:50)
[2016-11-27] MEDS: LORazepam 0.5 MG TAB PO SCH ×2 (08:50→22:27)
[2016-11-27] MEDS: lamoTRIgine 100 MG TAB PO SCH ×2 (08:50→22:27)
[2016-11-27] MEDS: POLYETHYLENE GLYCOL 17 GM PKG PO SCH (08:50)
[2016-11-27] MEDS: POLYSACCHARIDE IRON COMPLEX 150 MG CAP PO SCH (08:50)
[2016-11-27] MEDS: REMOVE OLD PATCH T-DERMAL SCH (09:00)
[2016-11-27] MEDS: NICOTINE 21 MG/24 HR PATCH T-DERMAL SCH (09:00)
[2016-11-27] MEDS: CLINDAMYCIN PHOS 1% TOPICAL SCH ×2 (09:00→21:00)
[2016-11-27 09:29] LABS: HDL CHOLESTEROL 39.1 MG/DL (40.0-60.0); LDL CHOLESTEROL 103 MG/DL (0-99)
[2016-11-27 10:49] LABS: HEMOGLOBIN A1b 0.7 %; HEMOGLOBIN Ao 87.5 %; HEMOGLOBIN F 1.2 %; HEMOGLOBIN LA1C 1.7 %; HEMOGLOBIN P3 3.1 %
[2016-11-27] MEDS: ACETAMINOPHEN 325 MG TAB PO PRN ×2 (14:00→22:29)
--- NOTE | 2016-11-27 14:54 | HHI.PYPN ---
Subjective Remarks Patient was seen and case discussed with nursing. This is a request for second opinion from Dr. Jaramillo. Today patient is perseverative on getting a one-to- one. Admission note was reviewed and the admitting physician believes that patient has attention seeking behavior. Patient says she has intent the banging her head and auditory hallucinations telling her to hurt herself and others. Her affect however is bright and cheerful and says that she wants " a palmira." She has not been being her head. Tolerating the medications well and has been pleasant towards everyone around her. Denies suicidal/homicidal ideations thought content or plan Objective Alert: Yes [place]: Person, Place, Date, Situation Mood: Oppositional Affect: Euthymic Memory Intact: Immediate Hallucinations: Auditory (to herself and others) Delusions: No Delusion Type: Other Suicidal: Ideation (denies) Homicidal: Ideation (denies) Insight/Judgement Poor Labs Test 11/27/16 08:29 Hemoglobin A1c 4.4 % Triglycerides Level 134 MG/DL Cholesterol Level 169 MG/DL LDL Cholesterol 103 MG/DL HDL Cholesterol 39.1 MG/DL Cholesterol/HDL Ratio 4.32 RATIO Vitals/IOs Vital Signs Date Time Temp Pulse Resp B/P Pulse Ox O2 Delivery O2 Flow Rate FiO2 11/27/16 05:46 97.6 78 16 118/67 11/26/16 20:24 99 11/26/16 15:15 Room Air Assessment & Plan Problem List: (1) Adjustment disorder ICD Code: F43.20 (2) History of schizophrenia ICD Code: Z86.59 Assessment & Plan No indication for one-to-one at this time given patient's attentive seeking behavior and history of such behavior. We will transfer her to see C unit as a precaution. Criteria to continue petition include psychosis and unstable behavior Justification for Cont. Inpt. Patient would decompensate in a less restrictive setting Request HC Surrog/Guard Advoc?: Yes Rambo Randhawa DO Nov 27, 2016 14:54
[2016-11-27 19:13] VITALS: BP 135/90; PULSE 85; RESP 16; O2SAT 100
[2016-11-27] MEDS: OLANZapine ODT 20 MG TAB SL SCH (21:00)
[2016-11-27] MEDS: LITHIUM CARBONATE 300 MG CAP PO SCH (22:27)
[2016-11-28 05:06] VITALS: BP 121/70; PULSE 83; RESP 16; O2SAT 97
[2016-11-28] MEDS: POLYETHYLENE GLYCOL 17 GM PKG PO SCH (09:00)
[2016-11-28] MEDS: CLINDAMYCIN PHOS 1% TOPICAL SCH ×2 (09:00→21:00)
[2016-11-28] MEDS: REMOVE OLD PATCH T-DERMAL SCH (09:00)
[2016-11-28] MEDS: NICOTINE 21 MG/24 HR PATCH T-DERMAL SCH (09:00)
[2016-11-28] MEDS: LORazepam 0.5 MG TAB PO SCH ×2 (09:07→20:48)
[2016-11-28] MEDS: LEVOTHYROXINE SODIUM 88 MCG TAB PO SCH (09:07)
[2016-11-28] MEDS: lamoTRIgine 100 MG TAB PO SCH ×2 (09:07→20:48)
[2016-11-28] MEDS: POLYSACCHARIDE IRON COMPLEX 150 MG CAP PO SCH (09:07)
--- NOTE | 2016-11-28 14:07 | HHI.PYPN ---
Subjective Remarks Patient was seen and case discussed with nursing. Odell level was 0.7. Patient remains childlike and perseverative on attention. She was kept on the 2600 unit. She remains perseverative on her ability to hurt others and herself. However she is pleasant and friendly and cheerful. Describes auditory hallucinations. During this interview she denies active intent or of hurting herself or anyone else Objective Alert: Yes [place]: Person, Place, Date, Situation Mood: Oppositional Affect: Euthymic Memory Intact: Immediate Hallucinations: Auditory (to herself and others) Delusions: No Delusion Type: Other Suicidal: Ideation (denies) Homicidal: Ideation (denies) Insight/Judgement Poor Labs Test 11/28/16 10:18 [place] Level 0.7 MEQ/L Vitals/IOs Vital Signs Date Time Temp Pulse Resp B/P Pulse Ox O2 Delivery O2 Flow Rate FiO2 11/28/16 05:06 83 16 121/70 97 11/27/16 05:46 97.6 11/26/16 15:15 Room Air Assessment & Plan Problem List: (1) Adjustment disorder ICD Code: F43.20 (2) History of schizophrenia ICD Code: Z86.59 Assessment & Plan Continue current treatment plan Justification for Cont. Inpt. Patient would decompensate in a less restrictive setting Request HC Surrog/Guard Advoc?: Yes Rambo Randhawa DO Nov 28, 2016 14:07
[2016-11-28] MEDS: ACETAMINOPHEN 325 MG TAB PO PRN (16:25)
[2016-11-28 18:56] VITALS: BP 132/84; PULSE 94; RESP 16; O2SAT 98
[2016-11-28] MEDS: LITHIUM CARBONATE 300 MG CAP PO SCH (20:48)
[2016-11-28] MEDS: OLANZapine ODT 20 MG TAB SL SCH (20:49)
[2016-11-29 06:48] VITALS: PULSE 96; RESP 16; O2SAT 97
[2016-11-29] MEDS: NICOTINE 21 MG/24 HR PATCH T-DERMAL SCH (09:00)
[2016-11-29] MEDS: REMOVE OLD PATCH T-DERMAL SCH (09:00)
[2016-11-29] MEDS: POLYSACCHARIDE IRON COMPLEX 150 MG CAP PO SCH (09:11)
[2016-11-29] MEDS: lamoTRIgine 100 MG TAB PO SCH ×2 (09:11→20:57)
[2016-11-29] MEDS: LORazepam 0.5 MG TAB PO SCH ×2 (09:11→20:57)
[2016-11-29] MEDS: POLYETHYLENE GLYCOL 17 GM PKG PO SCH (09:11)
[2016-11-29] MEDS: LEVOTHYROXINE SODIUM 88 MCG TAB PO SCH (09:11)
[2016-11-29] MEDS: CLINDAMYCIN 1% TOPICAL SCH ×2 (12:00→20:57)
--- NOTE | 2016-11-29 15:14 | HHI.PYPN ---
Subjective Remarks Patient seen and examined. Chart reviewed. Case discussed with nursing staff. On my examination today, the patient appears euthymic and reveling in the attention of the inpatient psychiatric unit. She says "I'm still having those same problems, doc. The bad voices. I'd rather not go home because they'd send me back here. I don't really feel safe there." She says that she would have suicidal and homicidal thoughts in the fpc setting. She denies any suicidal or homicidal intent here on the inpatient unit. She admits that she is not happy at her current fpc. Denies side effects from medications. No other issues noted. Review of Systems Other No physical complaints today Objective Alert: Yes [place]: Person, Place, Date, Situation Mood: Calm Affect: Euthymic (childlike) Memory Intact: Immediate Hallucinations: Auditory (reported command auditory hallucinations to hurt herself and others. The patient does not appear to all internally stimulated) Delusions: No Delusion Type: Other (no delusions) Suicidal: Intent (denies), Ideation (not while on the inpatient unit) Homicidal: Intent (denies), Ideation (not while on the inpatient unit) Insight/Judgement Poor Remarks No abnormal motor movements noted Labs Labs reviewed. No new labs. Vitals/IOs Vital Signs Date Time Temp Pulse Resp B/P Pulse Ox O2 Delivery O2 Flow Rate FiO2 11/29/16 06:48 96 16 97 11/27/16 05:46 97.6 11/26/16 15:15 Room Air Assessment & Plan Problem List: (1) Adjustment disorder ICD Code: F43.20 (2) History of schizophrenia ICD Code: Z86.59 Assessment & Plan Continue current psychotropics as ordered. Continue to limit reward for attention seeking behaviors. Continue other medications and care as ordered. Justification for Cont. Inpt. Risk for decompensation in a less restrictive setting Discharge Planning Possibly new fpc placement versus return to her existing fpc. Request HC Surrog/Guard Advoc?: Yes Problem Qualifiers (1) Adjustment disorder: Qualified Code: F43.20 - Adjustment disorder, unspecified type Abhijit Jaramillo MD Nov 29, 2016 15:14
[2016-11-29 19:22] VITALS: BP 145/87; PULSE 82; RESP 17; TEMP 98; O2SAT 100
[2016-11-29] MEDS: LITHIUM CARBONATE 300 MG CAP PO SCH (20:57)
[2016-11-29] MEDS: OLANZapine ODT 20 MG TAB SL SCH (20:58)
[2016-11-29] MEDS ORDERED: CLINDAMYCIN 1% TOPICAL SCH (21:00)
[2016-11-30 05:30] VITALS: BP 108/67; PULSE 65; RESP 16; TEMP 98.6; O2SAT 97
[2016-11-30] MEDS: REMOVE OLD PATCH T-DERMAL SCH (09:00)
[2016-11-30] MEDS: POLYSACCHARIDE IRON COMPLEX 150 MG CAP PO SCH (09:00)
[2016-11-30] MEDS: POLYETHYLENE GLYCOL 17 GM PKG PO SCH (09:00)
[2016-11-30] MEDS: CLINDAMYCIN 1% TOPICAL SCH ×2 (09:00→20:21)
[2016-11-30] MEDS ORDERED: LEVONORGESTREL PO SCH (09:00)
[2016-11-30] MEDS ORDERED: ETHINYL ESTRADIOL PO SCH (09:00)
[2016-11-30] MEDS: NICOTINE 21 MG/24 HR PATCH T-DERMAL SCH (09:00)
[2016-11-30] MEDS: ACETAMINOPHEN 325 MG TAB PO PRN (09:07)
[2016-11-30] MEDS: LORazepam 0.5 MG TAB PO SCH ×2 (09:12→20:18)
[2016-11-30] MEDS: lamoTRIgine 100 MG TAB PO SCH ×2 (09:12→20:18)
[2016-11-30] MEDS: LEVOTHYROXINE SODIUM 88 MCG TAB PO SCH (09:12)
--- NOTE | 2016-11-30 11:57 | HHI.PYPN ---
Subjective Remarks Patient seen and examined with counselor. Chart reviewed. Case discussed in treatment team. On my examination today, the patient says that "Dr. Randhawa said that he put me on a one-to-one." Prominent attention seeking noted. Patient says that she can't return to her long term just yet because "I still feel like I'm going to hurt myself or someone else there." No reported urge to do either while on the unit here. No side effects from medications. Review of Systems Other No physical complaints today Objective Alert: Yes [place]: Person, Place, Date, Situation Mood: Calm Affect: Euthymic (remains quite childlike) Memory Intact: Comment (fair) Hallucinations: Auditory (Does not appear int stim but reports CAHs before) Delusions: No Delusion Type: Other (No delusional material) Suicidal: Ideation (No SI on the unit. ) Homicidal: Ideation (No HI on the unit.) Insight/Judgement Poor Remarks Thought process linear. Labs Labs reviewed. No new labs. Vitals/IOs Vital Signs Date Time Temp Pulse Resp B/P Pulse Ox O2 Delivery O2 Flow Rate FiO2 11/30/16 05:30 98.6 65 16 108/67 97 11/26/16 15:15 Room Air Assessment & Plan Problem List: (1) Adjustment disorder ICD Code: F43.20 (2) History of schizophrenia ICD Code: Z86.59 Assessment & Plan Continue current psychotropics as ordered. Continue other medications and care as ordered. Justification for Cont. Inpt. Risk for decompensation. Discharge Planning Return to long term versus placement in a new long term setting. Counselor to reach out to patient's mother to clarify. Request HC Surrog/Guard Advoc?: Yes Problem Qualifiers (1) Adjustment disorder: Qualified Code: F43.20 - Adjustment disorder, unspecified type Abhijit Jaramillo MD Nov 30, 2016 11:57
[2016-11-30 20:00] VITALS: BP 136/74; PULSE 88; RESP 18; TEMP 98.1
[2016-11-30] MEDS: LITHIUM CARBONATE 300 MG CAP PO SCH (20:18)
[2016-11-30] MEDS: OLANZapine ODT 20 MG TAB SL SCH (20:20)
[2016-12-01 06:21] VITALS: BP 128/77; PULSE 78; RESP 18; TEMP 97.9; O2SAT 98
[2016-12-01] MEDS: LORazepam 0.5 MG TAB PO SCH ×2 (08:40→21:52)
[2016-12-01] MEDS: LEVOTHYROXINE SODIUM 88 MCG TAB PO SCH (08:40)
[2016-12-01] MEDS: POLYETHYLENE GLYCOL 17 GM PKG PO SCH (08:40)
[2016-12-01] MEDS: POLYSACCHARIDE IRON COMPLEX 150 MG CAP PO SCH (08:40)
[2016-12-01] MEDS: lamoTRIgine 100 MG TAB PO SCH ×2 (08:40→21:52)
[2016-12-01] MEDS: NICOTINE 21 MG/24 HR PATCH T-DERMAL SCH (08:42)
[2016-12-01] MEDS: CLINDAMYCIN 1% TOPICAL SCH ×2 (08:43→21:00)
[2016-12-01] MEDS: REMOVE OLD PATCH T-DERMAL SCH (08:43)
--- NOTE | 2016-12-01 15:28 | HHI.PYPN ---
Subjective Remarks Patient seen and examined. Chart reviewed. Case discussed with nursing staff are reports patient continues to display manipulative and attention seeking behaviors. On my examination today, the patient says that she is still hearing voices as before, although she seems less and less invested in describing these voices to me. She is happy that her mother is looking into getting her into a different senior living and even expresses some impatience with the delay in arranging for transfer to the senior living, which apparently hinges on getting funding from the [employer] which the mother is currently working on. No current SI or HI. No side effects from medications. Review of Systems Other No physical complaints today Objective Alert: Yes [place]: Person, Place, Date, Situation Mood: Calm Affect: Other (childlike) Memory Intact: Comment (remains fair) Hallucinations: Auditory (describes vague auditory hallucinations but again does not appear internally stimulated) Delusions: No Delusion Type: Other (no delusions) Suicidal: Ideation (no SI) Homicidal: Ideation (no HI) Insight/Judgement Poor Remarks Speech within normal limits for rate, tone and volume Labs Labs reviewed. No new labs. Vitals/IOs Vital Signs Date Time Temp Pulse Resp B/P Pulse Ox O2 Delivery O2 Flow Rate FiO2 12/01/16 06:21 97.9 78 18 128/77 98 Assessment & Plan Problem List: (1) Adjustment disorder ICD Code: F43.20 (2) History of schizophrenia ICD Code: Z86.59 Assessment & Plan No evidence of any suicidality or homicidality on the unit despite observation. Attention seeking behaviors persist, and we have been making a concerted effort not to play into these. Continue current psychotropics as ordered. Continue other medications and care as ordered. Justification for Cont. Inpt. Discharge planning Discharge Planning Anticipate transition back to senior living setting tomorrow Request HC Surrog/Guard Advoc?: Yes Problem Qualifiers (1) Adjustment disorder: Qualified Code: F43.20 - Adjustment disorder, unspecified type Abhijit Jaramillo MD Dec 01, 2016 15:28
[2016-12-01 18:00] VITALS: BP 158/93; PULSE 79; RESP 18; TEMP 97.3; O2SAT 98
[2016-12-01 20:30] VITALS: BP 158/93; PULSE 79; RESP 18
[2016-12-01] MEDS: OLANZapine ODT 20 MG TAB SL SCH (21:00)
[2016-12-01] MEDS: LITHIUM CARBONATE 300 MG CAP PO SCH (21:52)
[2016-12-01] MEDS: ACETAMINOPHEN 325 MG TAB PO PRN (21:58)
[2016-12-02 06:07] VITALS: BP 114/78; PULSE 77; RESP 16; TEMP 97.8
[2016-12-02] MEDS: POLYETHYLENE GLYCOL 17 GM PKG PO SCH (09:00)
[2016-12-02] MEDS: CLINDAMYCIN 1% TOPICAL SCH ×2 (09:00→20:42)
[2016-12-02] MEDS: POLYSACCHARIDE IRON COMPLEX 150 MG CAP PO SCH (09:08)
[2016-12-02] MEDS: LORazepam 0.5 MG TAB PO SCH ×2 (09:08→20:43)
[2016-12-02] MEDS: LEVOTHYROXINE SODIUM 88 MCG TAB PO SCH (09:08)
[2016-12-02] MEDS: lamoTRIgine 100 MG TAB PO SCH ×2 (09:08→20:42)
--- NOTE | 2016-12-02 15:50 | HHI.DS ---
Psychiatry Discharge Summary Inpatient Psychiatric care?: Yes Advance Directive: No Reason Not Provided: Due to Patient Condition Mental Health AdvanceDirective: No Health Care Proxy: No Admission Admission Date Nov 26, 2016 at 15:47 Admission Diagnosis: (1) Adjustment disorder ICD Code: F43.20 (2) History of schizophrenia ICD Code: Z86.59 Brief History Ms. Sam is a 26-year-old female with a history of adjustment disorder and schizophrenia who presents under a Morales act for the third time in 4 days alleging that she is hearing voices telling her to kill her roommate's at the correction. Patient also allegedly self injured by banging her head against the wall. I saw the patient in consultation yesterday and lifted her Morales act because she has a history of voicing command auditory hallucinations and even engaging in self-injurious behavior as an attention seeking ploy and in order to get admitted to the inpatient psychiatric unit.. Additionally, patient's mother and guardian had requested that the patient not be admitted as admission reinforces this attention seeking behavior. Reviewing the electronic medical record, she was admitted most recently, and part under my care, in July of last year. Patient seen and examined. Chart reviewed. Case discussed with nurse in the J- pod. On my examination today, the patient says "Hey doc, same reason. I don't think going home is the best idea. I tried to give the medications that chance to work, but nothing changed. I'm telling the truth doc. Can we put me on the unit with all the cameras?" Patient is hoping to go to the high acuity 2700 unit, I suspect because it affords greater attention. She insists she is still experiencing CAH, although she does not appear internally stimulated. She does not describe any current SI or HI but insists that she cannot contract for safety in the community. The remainder of the psychiatric ROS is negative. Past psychiatric, family, chemical dependency, social history have been obtained repeatedly during previous encounters and are unchanged today. I did speak with patient's mother, Ms. Holcomb. Given the apparent persistence of patient's behaviors, she agrees that hospitalization at this juncture is likely necessary. She asks that we take steps to minimize attention paid to patient's behaviors, though, to avoid exacerbating the problem. Tobacco Use In Past 30 Days: No Tobacco Past 30 Days Alcohol Use: Never Hospital Course Patient was admitted to a locked, inpatient psychiatric unit. Appropriate precautions were in place throughout patient's hospital stay. Patient was seen and examined daily on the unit by psychiatry and also visited by counselor. Home medications were continued and patient tolerated medications well without side effects. There was absolutely no evidence of suicidality or homicidality on the inpatient unit. The patient continued to describe command auditory hallucinations at times but did not appear internally stimulated, nor was there any evidence that she was acting under the instruction of any sort of command auditory hallucinations. It is the sense of myself and the treatment team that these reported symptoms are, as before, attention seeking in nature with the goal of maintaining the sick role and not the result of a primary psychotic disorder. She frequently requested inappropriate escalations in her level of care such as wanting to be placed on a 1:1 or requesting transfer to the high acuity inpatient psychiatric unit. On the day of discharge: Case discussed with nursing staff. No problematic behaviors to report. Case discussed with counselor. Patient today does not describe any suicidal or homicidal ideation. She does not describe any hallucinations, command or otherwise. She does threaten, if she has not retained on the unit for a duration of her liking, that she will manufacture some reason to return to the inpatient psychiatric unit. Given that we have observed the patient for a week now with no evidence of any problematic behaviors, I wallpaper hanger the patient has maximized benefit from this inpatient psychiatric hospital stay. I did discuss the case with patient' s mother, Ms. Holcomb, who understands that there is no ongoing cause to retain the patient on the inpatient psychiatric unit. Ms. Holcomb continues to work on having patient transferred to a different correction, but there is at present no certain date for when this transfer might come through, I am told. Patient is to follow up with outpatient psychiatry and primary care. Results Blood Pressure 114 / 78 Vital Signs Date Time Temp Pulse Resp B/P Pulse Ox O2 Delivery O2 Flow Rate FiO2 12/02/16 06:07 97.8 77 16 114/78 12/01/16 18:00 98 Laboratory Results Test 11/28/16 10:18 [place] Level 0.7 MEQ/L (0.5-1.5) Summary of Procedures None done Imaging None done Pending results at discharge: No Medications # of Antipsychotic meds at D/C: 1 Approp Antipsych med options 1 - Minimum of three failed multiple trials of monotherapy. 2 - Documented plan to taper to monotherapy due to previous use of multiple meds OR cross-taper in progress at D/C. 3 - Documentation of augmentation of Clozapine. 4 - Justification other than those listed in allowable values 1-3, document here : Discharge Discharge Date: Dec 02, 2016 Discharge Diagnosis: (1) Factitious disorder Diagnosis: Principal ICD Code: F68.10 Mental Status Exam at Disch Patient is casually dressed. She is fairly well groomed and maintaining basic hygiene. She is awake and alert and oriented to person and hospital at least. No new abnormal motor movements noted. Speech is within normal limits for rate , tone and volume. Language and fund of knowledge seem average. Mood and affect are childlike but fairly full and reactive and certainly not depressed or manic/hypomanic. Thought process linear. No loosening of associations. No evident delusions. No reported AVH. No reported suicidal or homicidal ideation at this time. Insight and judgment are poor, chronically so. Pt Condition on Discharge: Stable Discharge Disposition: ACLF/CUSTODIAL Discharge Instructions Diet Instructions: As Tolerated, No Restrictions Activities you can perform: Weight Bearing as Juliana Scheduled Appointment: [facility] Appointment Date: Dec 06, 2016 Appointment Time: 10:30am Continued Medications: Cholecalciferol (D 1000) 1,000 Unit Cap Clindamycin Topical (Clindamycin Topical) 1% Gel 1 APPLIC TOPICAL BID ACNE #30 Ref 0 GM Cyanocobalamin (B-12) 1,000 Mcg Lozg 1000 MCG IM q30 days Nutritional Supplement #1 Ref 0 BOTTLE Lamotrigine (Lamictal) 200 Mg Tab 200 MG PO BID health #60 Ref 2 TAB Levonorgestrel-Ethinyl Estradiol ([place]) 0.15-0.03-0.01 Mg Tab 1 TAB PO DAILY Control #91 Ref 0 TAB Levothyroxine (Levothyroxine) 88 Mcg Tab 88 MCG PO DAILY Thyroid #30 Ref 2 TAB [place] Carbonate ([place] Carbonate) 300 Mg Cap 300 MG PO 3 hs health #90 Ref 2 CAP Lorazepam (Ativan) 0.5 Mg Tab 0.5 MG PO BID anxiety #60 Ref 2 TAB Olanzapine Odt (Zyprexa Zydis) 20 Mg Tab 20 MG SL HS health #30 Ref 2 TAB Polyethylene Glycol 3350 (Bulk (Polyethylene Glycol 3350) 1 Gra Gra 3350 MEQ PO DAILY Constipation Days 30 BOX Polysaccharide Iron Complex (Poly-Iron 150) 150 Mg Cap 150 MG PO DAILY Nutritional Supplement #30 Ref 0 CAP Sodium Fluoride-Potassium Nitr (Prevident 5000 Sensitive 1.1-5 %) 1 Pst Pst Unknown Dose PO HS Discharge Time <= 30 minutes Discharge/Advance Care Plan Health Problems: (1) Adjustment disorder (2) History of schizophrenia Goals to promote your health * To prevent worsening of your condition and complications * To maintain your health at the optimal level Directions to meet your goals Take your medications as prescribed Follow your dietary instruction Follow activity as directed Keep your appointments as scheduled Take your immunizations and boosters as scheduled If your symptoms worsen call your PCP, if no PCP go to Urgent Care Center or Emergency Room For 06/06 questions related to your inpatient stay or results of tests pending at discharge, please contact Dr. Abhijit Jaramillo at Smoking is Dangerous to Your Health. Avoid second hand smoking Problem Qualifiers (1) Adjustment disorder: Qualified Code: F43.20 - Adjustment disorder, unspecified type Abhijit Jaramillo MD Dec 02, 2016 15:50
[2016-12-02 18:00] VITALS: BP 132/93; PULSE 86; RESP 16; TEMP 97.6; O2SAT 100
[2016-12-02] MEDS: LITHIUM CARBONATE 300 MG CAP PO SCH (20:42)
[2016-12-02] MEDS: OLANZapine ODT 20 MG TAB SL SCH (20:45)
[2016-12-03 05:51] VITALS: BP 104/67; PULSE 76; RESP 16; TEMP 97.6; O2SAT 99
--- NOTE | 2016-12-03 07:17 | HHI.PYPN ---
Subjective Remarks Discharge held yesterday because shelter didn't come to pick patient up; they are coming this morning. Pt seen and examined. Chart reviewed. Case d/w RN. No behavioral issues overnight. On my exam today, pt remains attention seeking and childlike. Continues to complain of vague voices but there is no evidence of internal stimulation. Does not articulate any SI or HI. Continues to threaten to manufacture symptoms to have her returned to ED if discharged today. No evident side effects from meds. Review of Systems ROS Limitations: Poor Historian Other No physical complaints. Objective Alert: Yes [place]: Person (Again O x 3) Mood: Calm Affect: Other (Childlike) Memory Intact: Comment (Remains fair) Hallucinations: Auditory (Reports vague AH but does not appear internally stimulated) Delusions: No Delusion Type: Other (No delusions) Suicidal: Ideation (No suicidal ideation, intent or plan) Homicidal: Ideation (No homicidal ideation, intent or plan) Insight/Judgement Poor Remarks No motoric abnormalities noted. Thought process linear. Labs Labs reviewed. No new labs. Vitals/IOs Vital Signs Date Time Temp Pulse Resp B/P Pulse Ox O2 Delivery O2 Flow Rate FiO2 12/03/16 05:51 97.6 76 16 104/67 99 Intake and Output 12/02/16 12/02/16 12/03/16 08:00 16:00 00:00 Intake Total 240 ml Balance 240 ml Assessment & Plan Problem List: (1) Factitious disorder ICD Code: F68.10 Assessment & Plan Pt remains at her baseline. Continue current psychotropics as ordered. Discharge back to shelter this morning. Justification for Cont. Inpt. Discharge today. Discharge Planning Discharge today. Request HC Surrog/Guard Advoc?: Yes Abhijit Jaramillo MD Dec 03, 2016 07:17
[2016-12-03] MEDS: LEVOTHYROXINE SODIUM 88 MCG TAB PO SCH (08:33)
[2016-12-03] MEDS: POLYETHYLENE GLYCOL 17 GM PKG PO SCH (08:33)
[2016-12-03] MEDS: lamoTRIgine 100 MG TAB PO SCH (08:33)
[2016-12-03] MEDS: POLYSACCHARIDE IRON COMPLEX 150 MG CAP PO SCH (08:33)
[2016-12-03] MEDS: LORazepam 0.5 MG TAB PO SCH (08:33)
[2016-12-03] MEDS: CLINDAMYCIN 1% TOPICAL SCH (08:46)
== END 2016-12-03 09:35 | disposition home or self-care (01) | DRG 882 ==
LOC: NEPJ 14:27 → NEDA 15:47 → H260 16:48
PROVIDERS: ADMIT Psychiatry & Neurology Psychiatry; ATTEND Psychiatry & Neurology Psychiatry
DX: F43.20 Adjustment disorder, unspecified (principal); R45.851 Suicidal ideations; R45.850 Homicidal ideations; F20.0 Paranoid schizophrenia; Z86.73 Personal history of transient ischemic attack (TIA), and cerebral infarction without residual deficits
CPT/HCPCS: 80061; 80178; 83036; 99284

== ENCOUNTER 2017-08-06 12:12 | Emergency (ER) | payer OTHER ==
[~2017-08-06] VITALS: Ht 167.6 cm; Wt 65.0 kg
[2017-08-06 12:47] VITALS: BP 130/78; PULSE 88; RESP 17; TEMP 97.6; O2SAT 99
--- NOTE | 2017-08-06 12:58 | PD ---
HPI . Psychosis Chief Complaint: Psychiatric Symptoms Time Seen by Provider: 12:41 Travel History International Travel<30 days: No Contact w/Intl Traveler<30days: No Traveled to known affect area: No History of Present Illness HPI This patient presents under the Morales Act for acute psychosis. She has a history of paranoid schizophrenia. She is now hearing voices. Her Morales Act reports that she was being physically restrained at her residence to prevent her from harming herself or others because the voices are instructing her to do harmful things. PFSH Past Medical History Anxiety: Yes Cerebral Palsy: Yes Cerebrovascular Accident: Yes (at ) Developmental Delay: Yes Diminished Hearing: No Endocrine: No Genitourinary: No Headaches: No Immune Disorder: No Musculoskeletal: No Neurologic: Yes (right hand contracture) Psychiatric: Yes (Hx of treatment for Schizoaffective Disorder) Reproductive: No Respiratory: No Immunizations Current: Yes Migraines: No Pancreatitis: Yes Schizophrenia: Yes (HEARING HALLUCINATION SINCE 10 YEARS OLD ) ?: Unknown Past Surgical History Cholecystectomy: Yes Thoracic Surgery: Yes (G-TUBE INSERTION AND REMOVAL) Other Surgery: Yes Social History Alcohol Use: No Tobacco Use: No Substance Use: No Allergies-Medications (Allergen,Severity, Reaction): Coded Allergies: Fish Containing Products (Unverified Allergy, Severe, Anaphylaxis, 08/06/17 ) shrimp (Verified Allergy, Intermediate, 08/06/17) Reported Meds & Prescriptions Reported Meds & Active Scripts Active Zyprexa Zydis (Olanzapine) 20 Mg Tab 20 Mg SL HS [place] Carbonate 300 Mg Cap 300 Mg PO 3 HS Ativan (Lorazepam) 0.5 Mg Tab 0.5 Mg PO BID Lamictal (Lamotrigine) 200 Mg Tab 200 Mg PO BID Levothyroxine (Levothyroxine Sodium) 88 Mcg Tab 88 Mcg PO DAILY Poly-Iron 150 (Polysaccharide Iron Complex) 150 Mg Cap 150 Mg PO DAILY B-12 (Cyanocobalamin) 1,000 Mcg Lozg 1,000 Mcg IM Q30 DAYS Polyethylene Glycol 3350 (Polyethylene Glycol 3350 (Bulk) 1 Gra Gra 3,350 Meq PO DAILY 30 Days Reported D 1000 (Cholecalciferol) 1,000 Unit Cap [place] (Levonorgestrel-Ethinyl Estradiol) 0.15-0.03-0.01 Mg Tab 1 Tab PO DAILY Prevident 5000 Sensitive 1.1-5 % (Sodium Fluoride-Potassium Nitr) 1 Pst Pst Unknown Dose PO HS Clindamycin Topical (Clindamycin Phosphate) 1% Gel 1 Applic TOPICAL BID Review of Systems Except as stated in HPI: all other systems reviewed are Neg Psychiatric: Positive: Suicidal Ideations, Disorder of Thought Physical Exam Narrative GENERAL: The patient is sitting on a stretcher hugging a cherise bear. SKIN: warm/dry. No rashes. HEAD: Normocephalic. Atraumatic. EYES: Pupils equal and round. NECK: Full range of motion without pain.. CARDIOVASCULAR: Regular rate and rhythm. RESPIRATORY: No accessory muscle use. MUSCULOSKELETAL: No obvious deformities. NEUROLOGICAL: Awake and alert. No obvious cranial nerve deficits. Motor grossly within normal limits. Normal speech. PSYCHIATRIC: She appears to be responding to internal stimuli. Data Data Last Documented VS Vital Signs Date Time Temp Pulse Resp B/P (MAP) Pulse Ox O2 Delivery O2 Flow Rate FiO2 08/06/17 12:47 97.6 88 17 130/78 (95) 99 MDM Medical Decision Making Medical Screen Exam Complete: Yes Emergency Medical Condition: Yes Medical Record Reviewed: Yes (history of paranoid schizophrenia.) Differential Diagnosis Differential diagnosis of psychosis includes but is not limited to schizophrenia , schizoaffective disorder, bipolar disorder, intoxication, substance abuse, dementia Narrative Course This patient is brought in as a Morales Act. She has a history of paranoid schizophrenia and is having an acute exacerbation. This patient is medically clear for psychiatric evaluation. Diagnosis Primary Impression: Medical clearance for psychiatric admission Condition: Stable Lily Del Rio MD Aug 06, 2017 12:58
[2017-08-07 07:36] VITALS: BP 126/70; PULSE 76; RESP 18; O2SAT 99
--- NOTE | 2017-08-07 15:07 | PD ---
History of Present Illness Chief Complaint: Psychiatric Symptoms Time Seen by Provider: 14:50 Travel History International Travel<30 Days: No Contact w/Intl Traveler<30days: No Known affected area: No Legal Status Legal Status: Morales Act History of Present Illness: 26-year-old female Morales acted for suicidality and hearing voices "inside my head". Patient is mentally retarded and not truly psychotic. She is having altercations at her intermediate. She would like a different intermediate but she does not wish to kill herself. This physician recognizes her cognition is at baseline and she has a developmental disability. These individuals are not supposed to be Morales acted for their developmental disabilities but this is a law enforcement Morales act. Patient was asked to call her shoe caser to change group homes as this is her main goal in coming to the emergency department. She is not truly suicidal or homicidal or psychotic. PFSH Past Medical History Anxiety: Yes Cerebral Palsy: Yes Cerebrovascular Accident: Yes (at ) Developmental Delay: Yes Diminished Hearing: No Endocrine: No Genitourinary: No Headaches: No Immune Disorder: No Musculoskeletal: No Neurologic: Yes (right hand contracture) Psychiatric: Yes (Hx of treatment for Schizoaffective Disorder) Reproductive: No Respiratory: No Immunizations Current: Yes Migraines: No Pancreatitis: Yes Schizophrenia: Yes (HEARING HALLUCINATION SINCE 10 YEARS OLD ) ?: Unknown Past Surgical History Cholecystectomy: Yes Thoracic Surgery: Yes (G-TUBE INSERTION AND REMOVAL) Other Surgery: Yes Psychiatric History Psychiatric History Hx Psychiatric Treatment: Pt has a history of inpatient psychiatric hospitalizations at various facilities including [facility] with last visit occurring in July of 2016. She has a history of outpatient psychiatric services and most recently has been seeing Dr. Dillon though she must find a new provider as this clinic is closing. She reports some mixed compliance with regiment due to the "voices". History of Inpatient Treatment: Yes Guns or firearms in home: No Social History Hx Alcohol Use: No Hx Tobacco Use: No Hx Substance Use: No Hx of Substance Use Treatment: No Allergies-Medications (Allergen,Severity, Reaction): Coded Allergies: Fish Containing Products (Unverified Allergy, Severe, Anaphylaxis, 08/06/17 ) shrimp (Verified Allergy, Intermediate, 08/06/17) Reported Meds & Prescriptions Reported Meds & Active Scripts Active Zyprexa Zydis (Olanzapine) 20 Mg Tab 20 Mg SL HS [place] Carbonate 300 Mg Cap 300 Mg PO 3 HS Ativan (Lorazepam) 0.5 Mg Tab 0.5 Mg PO BID Lamictal (Lamotrigine) 200 Mg Tab 200 Mg PO BID Levothyroxine (Levothyroxine Sodium) 88 Mcg Tab 88 Mcg PO DAILY Poly-Iron 150 (Polysaccharide Iron Complex) 150 Mg Cap 150 Mg PO DAILY B-12 (Cyanocobalamin) 1,000 Mcg Lozg 1,000 Mcg IM Q30 DAYS Polyethylene Glycol 3350 (Polyethylene Glycol 3350 (Bulk) 1 Gra Gra 3,350 Meq PO DAILY 30 Days Reported D 1000 (Cholecalciferol) 1,000 Unit Cap [place] (Levonorgestrel-Ethinyl Estradiol) 0.15-0.03-0.01 Mg Tab 1 Tab PO DAILY Prevident 5000 Sensitive 1.1-5 % (Sodium Fluoride-Potassium Nitr) 1 Pst Pst Unknown Dose PO HS Clindamycin Topical (Clindamycin Phosphate) 1% Gel 1 Applic TOPICAL BID Review of Systems Except as stated in HPI: all other systems reviewed are Neg Exam Alert: Yes [place]: Person, Place, Date, Situation Mood: Calm Affect: Appropriate Speech: Clear, Logical Eye Contact: Normal Memory Intact: Immediate, Recent, Remote Insight/Judgement Adequate MDM Medical Decision Making Medical Record Reviewed: Yes Assessment/Plan Patient interviewed at bedside, medical record reviewed and case discussed with nurse. In this physician's opinion, patient does not qualify for Morales act or involuntary psychiatric hospitalization. She needs to return to intermediate and contact her shoe caser if she wishes to change group homes. Orders Orders Psych Screen (08/06/17 22:03) Diet Regular Basic (08/07/17 Breakfast) Diet Regular Basic (08/07/17 Lunch) Vascular Poc Ultrasound (08/07/17 ) Results Vital Signs Date Time Temp Pulse Resp B/P (MAP) Pulse Ox O2 Delivery O2 Flow Rate FiO2 08/07/17 07:36 76 18 126/70 (88) 99 Room Air Diagnosis Primary Impression: Mental retardation Condition: Stable Brenden Awad MD Aug 07, 2017 15:07
== END 2017-08-07 16:51 | disposition home or self-care (01) ==
LOC: NEPD 12:12
DX: F79 Unspecified intellectual disabilities (principal); F20.0 Paranoid schizophrenia; G80.9 Cerebral palsy, unspecified
CPT/HCPCS: 99283

== ENCOUNTER 2017-09-30 12:25 | Emergency (ER) | payer OTHER ==
[~2017-09-30] VITALS: Ht 167.4 cm; Wt 65.0 kg
[2017-09-30 12:40] VITALS: BP 145/97; PULSE 98; RESP 16; TEMP 98.4; O2SAT 98
--- NOTE | 2017-09-30 13:42 | PD ---
HPI Chief Complaint: Psychiatric Symptoms Time Seen by Provider: 13:23 Travel History International Travel<30 days: No Contact w/Intl Traveler<30days: No Traveled to known affect area: No History of Present Illness HPI 26-year-old female with history of mental retardation and develop mental disability presents to the emergency room under Morales act initiated by Police Department. Patient is difficult to extract information from. Basically she is 9 she was walking in traffic, threatening to kill herself. The skilled nursing and came to collect her and she became angry because she did not want to be restrained so she began bashing her head on the concrete and screaming that she wanted to kill herself. At that time the police were called and she was brought to the emergency room. Patient states she is "having a crisis." States she is depressed and wants to . Denies homicidal ideation. Denies visual or auditory hallucinations at this time. States she sometimes hears voices but not now. She also reports itchy, red rash to her vagina that has been ongoing and is being taken care of at the skilled nursing where she lives with topical cream. Patient denies any sexual abuse. PFSH Past Medical History Anxiety: Yes Cerebral Palsy: Yes Cerebrovascular Accident: Yes (at ) Developmental Delay: Yes Diminished Hearing: No Endocrine: No Genitourinary: No Headaches: No Immune Disorder: No Musculoskeletal: No Neurologic: Yes (right hand contracture) Psychiatric: Yes (Hx of treatment for Schizoaffective Disorder) Reproductive: No Respiratory: No Immunizations Current: Yes Migraines: No Pancreatitis: Yes Schizophrenia: Yes (HEARING HALLUCINATION SINCE 10 YEARS OLD ) Past Surgical History Cholecystectomy: Yes Thoracic Surgery: Yes (G-TUBE INSERTION AND REMOVAL) Other Surgery: Yes Social History Alcohol Use: No Tobacco Use: No Substance Use: No Allergies-Medications (Allergen,Severity, Reaction): Coded Allergies: Fish Containing Products (Unverified Allergy, Severe, Anaphylaxis, 08/06/17 ) shrimp (Verified Allergy, Intermediate, 08/06/17) Reported Meds & Prescriptions Reported Meds & Active Scripts Active Zyprexa Zydis (Olanzapine) 20 Mg Tab 20 Mg SL HS [place] Carbonate 300 Mg Cap 300 Mg PO 3 HS Ativan (Lorazepam) 0.5 Mg Tab 0.5 Mg PO BID Lamictal (Lamotrigine) 200 Mg Tab 200 Mg PO BID Levothyroxine (Levothyroxine Sodium) 88 Mcg Tab 88 Mcg PO DAILY Poly-Iron 150 (Polysaccharide Iron Complex) 150 Mg Cap 150 Mg PO DAILY B-12 (Cyanocobalamin) 1,000 Mcg Lozg 1,000 Mcg IM Q30 DAYS Polyethylene Glycol 3350 (Polyethylene Glycol 3350 (Bulk) 1 Gra Gra 3,350 Meq PO DAILY 30 Days Reported D 1000 (Cholecalciferol) 1,000 Unit Cap [place] (Levonorgestrel-Ethinyl Estradiol) 0.15-0.03-0.01 Mg Tab 1 Tab PO DAILY Prevident 5000 Sensitive 1.1-5 % (Sodium Fluoride-Potassium Nitr) 1 Pst Pst Unknown Dose PO HS Clindamycin Topical (Clindamycin Phosphate) 1% Gel 1 Applic TOPICAL BID Review of Systems Except as stated in HPI: all other systems reviewed are Neg Physical Exam Narrative GENERAL: Well-nourished, well-developed female in no acute distress. Afebrile. Ambulatory. SKIN: Focused skin assessment warm/dry. HEAD: Normocephalic. EYES: No scleral icterus. No injection or drainage. NECK: Supple, trachea midline. No JVD or lymphadenopathy. CARDIOVASCULAR: Regular rate and rhythm without murmurs, gallops, or rubs. RESPIRATORY: Breath sounds equal bilaterally. No accessory muscle use. PSYCHIATRIC: No delusional thought processes. No hallucinations. Normal affect. She does not appear to be responding to internal stimuli. Data Data Last Documented VS Vital Signs Date Time Temp Pulse Resp B/P (MAP) Pulse Ox O2 Delivery O2 Flow Rate FiO2 09/30/17 13:56 96 20 09/30/17 12:40 98.4 145/97 (113) 98 Orders Orders Complete Blood Count With Diff (09/30/17 13:33) Basic Metabolic Panel (Bmp) (09/30/17 13:33) Urinalysis - C+S If Indicated (09/30/17 13:33) Ed Urine Pregnancytest Poc (09/30/17 13:33) Psych Screen (09/30/17 13:33) Drug Screen, Random Urine (09/30/17 13:33) Alcohol (Ethanol) (09/30/17 13:33) Urine Culture (09/30/17 13:30) Labs Laboratory Tests Test 09/30/17 13:30 09/30/17 13:33 09/30/17 14:35 Urine Color LIGHT-YELLOW Urine Turbidity CLEAR Urine pH 6.5 Urine Specific [place] 1.004 Urine Protein NEG mg/dL Urine Glucose (UA) NEG mg/dL Urine Ketones NEG mg/dL Urine Occult Blood NEG Urine Nitrite NEG Urine Bilirubin NEG Urine Urobilinogen LESS THAN 2.0 MG/DL Urine Leukocyte Esterase TRACE Urine RBC 0-3 /hpf Urine WBC 0-2 /hpf Urine Squamous Epithelial Cells 0-5 /hpf Urine Bacteria MOD /hpf Microscopic Urinalysis Comment CULTURE INDICATED Urine Opiates Screen NEG Urine Barbiturates Screen NEG Urine Amphetamines Screen NEG Urine Benzodiazepines Screen NEG Urine Cocaine Screen NEG Urine Cannabinoids Screen NEG White Blood Count 12.8 TH/MM3 Red Blood Count 4.98 MIL/MM3 Hemoglobin 15.2 GM/DL Hematocrit 44.7 % Mean Corpuscular Volume 89.7 FL Mean Corpuscular Hemoglobin 30.5 PG Mean Corpuscular Hemoglobin Concent 34.0 % Red Cell Distribution Width 13.8 % Platelet Count 363 TH/MM3 Mean Platelet Volume 6.7 FL Neutrophils (%) (Auto) 82.5 % Lymphocytes (%) (Auto) 12.5 % Monocytes (%) (Auto) 4.5 % Eosinophils (%) (Auto) 0.2 % Basophils (%) (Auto) 0.3 % Neutrophils # (Auto) 10.6 TH/MM3 Lymphocytes # (Auto) 1.6 TH/MM3 Monocytes # (Auto) 0.6 TH/MM3 Eosinophils # (Auto) 0.0 TH/MM3 Basophils # (Auto) 0.0 TH/MM3 CBC Comment DIFF FINAL Differential Comment Blood Urea Nitrogen 11 MG/DL Creatinine 1.02 MG/DL Random Glucose 81 MG/DL Calcium Level 9.9 MG/DL Sodium Level 144 MEQ/L Potassium Level 3.8 MEQ/L Chloride Level 109 MEQ/L Carbon Dioxide Level 27.6 MEQ/L Anion Gap 7 MEQ/L Estimat Glomerular Filtration Rate 66 ML/MIN Ethyl Alcohol Level LESS THAN 3 MG/DL [facility] Medical Decision Making Medical Screen Exam Complete: Yes Emergency Medical Condition: Yes Medical Record Reviewed: Yes Differential Diagnosis Schizophrenia, fictitious disorder, adjustment disorder, suicidal ideation, mood disorder Narrative Course 26-year-old female presents to the emergency room for evaluation of suicidal ideation. She is under a Morales act. Patient states she was walking in a row this morning in an effort to kill herself. When the skilled nursing van tried to restrain her, she began to scream that she wanted to kill herself and banged her head on the road. Police were then called. Patient states she is depressed and suicidal. Patient states that she does not get to go to the [address] unit with a one-on-one sitter and a TV, she will incessantly scream that she wants to kill herself. She has made these statements in the past. Psychiatrist previously documented that she is attention seeking. Her mother called during the ER stay stating the patient thinks of the [address] unit as a reward. Denies auditory or or visual hallucinations. She is being treated for what sounds like a yeast infection with cream at her skilled nursing. Denies any other medical complaints. CBC, BMP are essentially unremarkable. Drug screen is negative. Alcohol negative. Urine test negative. UA is not particularly concerning for UTI. Vital signs stable. Patient is medically cleared for psychiatric evaluation. Condition: Stable Verito Nam Sep 30, 2017 13:42
[2017-09-30 14:09] LABS: BLOOD, URINE NEG (NEG); GLUCOSE,URINE NEG (NEG); KETONE, URINE NEG (NEG); NITRITE,URINE NEG (NEG); PH, URINE 6.5 (5.0-8.5); URINE COLOR LIGHT-YELLOW (YELLW/STRAW)
[2017-09-30 14:37] LABS: RBC, URINE 0-3 /hpf (0-3); SQUAMOUS EPITHELIAL CELL URINE 0-5 /hpf (0-5); WBC, URINE 0-2 /hpf (0-5)
[2017-09-30 14:38] LABS: BACTERIA, URINE MOD /hpf; COMMENT (UR) CULTURE INDICATED; CULTURE IF INDICATED CULTURE INDICATED
[2017-09-30 15:24] LABS: AUTOMATED NEUTROPHIL # 10.6 TH/MM3 (1.8-7.7); BASOPHIL % 0.3 % (0.0-2.0); EOSINOPHIL % 0.2 % (0.0-4.0); HEMATOCRIT 44.7 % (35.0-46.0); HEMO FLAGS DIFF FINAL; LYMPH % 12.5 % (9.0-44.0); LYMPHOCYTE # 1.6 TH/MM3 (1.0-4.8); MEAN CELL VOLUME 89.7 FL (80.0-100.0); MEAN CORPUSCULAR HEMOGLOBIN 30.5 PG (27.0-34.0); MONO % 4.5 % (0.0-8.0); NEUT % 82.5 % (16.0-70.0); PLATELET COUNT 363 TH/MM3 (150-450); RED BLOOD COUNT 4.98 MIL/MM3 (4.00-5.30); RED CELL DISTRIBUTION WIDTH 13.8 % (11.6-17.2); WHITE BLOOD COUNT 12.8 TH/MM3 (4.0-11.0)
[2017-09-30 15:54] LABS: ANION GAP 7 MEQ/L (5-15); BICARBONATE 27.6 MEQ/L (21.0-32.0); BLOOD UREA NITROGEN 11 MG/DL (7-18); CHLORIDE 109 MEQ/L (98-107); GLOMERULAR FILTRATION RATE 66 ML/MIN (>89); POTASSIUM 3.8 MEQ/L (3.5-5.1); SODIUM (NA) 144 MEQ/L (136-145)
[2017-09-30 16:00] LABS: ALCOHOL LESS THAN 3 MG/DL (0-5)
[2017-09-30] MEDS ORDERED: FLUCONAZOLE 100 MG TAB PO ONE (16:45)
[2017-09-30] MEDS ORDERED: DEPO150I IM (19:04)
[2017-09-30 19:23] VITALS: BP 178/116; PULSE 94; O2SAT 100
[2017-09-30 19:24] VITALS: BP 159/94; PULSE 83
[2017-09-30 23:32] VITALS: BP 147/88; PULSE 100; RESP 17; TEMP 98.2; O2SAT 96
[2017-10-01 02:44] VITALS: BP 128/64; PULSE 68; RESP 16; O2SAT 97
[2017-10-01 06:24] VITALS: BP 125/78; PULSE 92; RESP 18; O2SAT 95
[2017-10-01] MEDS ORDERED: diphenhydrAMINE HCL 50 MG CAP PO ONE (08:30)
[2017-10-01 11:12] VITALS: BP 130/71; PULSE 81; RESP 17; TEMP 97.4; O2SAT 95
--- NOTE | 2017-10-01 12:38 | PD ---
History of Present Illness Chief Complaint: Psychiatric Symptoms Time Seen by Provider: 12:15 Travel History International Travel<30 Days: No Contact w/Intl Traveler<30days: No Known affected area: No Legal Status Legal Status: Morales Act Morales Act Signed By: Derek Aponte Morales Act Comment: 09/30/2017 1129 AM D/S Deniz THOMAS #[id number] [phone] History of Present Illness: History of Present Illness HPI 26-year-old female with history of intellectual disability, adjustment disorder , record history of schizophrenia, as well as factitious disorder who presents to the emergency room under Morales act initiated by Police Department. The Morales act alleges that they responded to a call in reference to a mentally ill person. The officer observed the patient sitting next to the side of the road next to her counselor. The counselor reported that the patient had jumped out of their van while transporting her back to her group room. Patient also began to bang her head against the sidewalk when in the presence of the officers. Patient reported to ED staff that she was having a crisis, feeling depressed and that she wanted to . Patient has been monitored both the main ED and in J pod for over 24 hours. She has been attention seeking at times but has not engaged in any self-injurious behavior. She has been appropriate and her in her interactions with staff. When I met with her this morning she tells me that she had some problems with another member of her correction and that she feels that she needs to be inpatient. She also states that she was upset because she was not allowed to drink anything but water. She also tells me that her birthday is coming up pretty soon and she needs to be in the hospital until her birthday. She does not appear to be responding to internal stimuli. There is no ronan, no hypomania. No suicidal homicidal ideation. When I begin to discuss with her a discharge plan she gets upset and states that she doesn't think that that's a good idea. Electronic medical record is reviewed she has had an admission in November 2016. She was under the care Dr. Abhijit Jaramillo. He diagnosed her with factitious disorder. The patient is described during that admission is attention seeking and attempting to maintain the sick role in order to obtain attention. Staff have contacted the patient's mother reports that the patient's presentation is more motivated by her wanting to get admitted to the hospital and is more behavioral than psychiatrically induced. PFSH Past Medical History Anxiety: Yes Cerebral Palsy: Yes Cerebrovascular Accident: Yes (at ) Developmental Delay: Yes Diminished Hearing: No Endocrine: No Genitourinary: No Headaches: No Immune Disorder: No Musculoskeletal: No Neurologic: Yes (right hand contracture) Psychiatric: Yes (Hx of treatment for Schizoaffective Disorder) Reproductive: No Respiratory: No Immunizations Current: Yes Migraines: No Pancreatitis: Yes Schizophrenia: Yes (HEARING HALLUCINATION SINCE 10 YEARS OLD ) Tetanus Vaccination: > 5 Years Influenza Vaccination: Yes ?: Not Past Surgical History Cholecystectomy: Yes Thoracic Surgery: Yes (G-TUBE INSERTION AND REMOVAL) Other Surgery: Yes Psychiatric History Psychiatric History Hx Psychiatric Treatment: Last inpatient admission was Nov 26-2016 for adjustment disorders. History of Inpatient Treatment: Yes Guns or firearms in home: No Social History Single female who lives in a correction. Never . Hx Alcohol Use: No Hx Tobacco Use: No Hx Substance Use: No Hx of Substance Use Treatment: No Family Psychiatric History Negative Allergies-Medications (Allergen,Severity, Reaction): Coded Allergies: Fish Containing Products (Unverified Allergy, Severe, Anaphylaxis, 08/06/17 ) shrimp (Verified Allergy, Intermediate, 08/06/17) Reported Meds & Prescriptions Reported Meds & Active Scripts Active Zyprexa Zydis (Olanzapine) 20 Mg Tab 20 Mg SL HS [place] Carbonate 300 Mg Cap 300 Mg PO 3 HS Ativan (Lorazepam) 0.5 Mg Tab 0.5 Mg PO BID Lamictal (Lamotrigine) 200 Mg Tab 200 Mg PO BID Levothyroxine (Levothyroxine Sodium) 88 Mcg Tab 88 Mcg PO DAILY Polyethylene Glycol 3350 (Polyethylene Glycol 3350 (Bulk) 1 Gra Gra 3,350 Meq PO DAILY 30 Days Reported Depo-Provera Inj (Medroxyprogesterone Inj) 150 Mg/Ml Inj 150 Mg IM Q90D D 1000 (Cholecalciferol) 1,000 Unit Cap Prevident 5000 Sensitive 1.1-5 % (Sodium Fluoride-Potassium Nitr) 1 Pst Pst Unknown Dose PO HS Clindamycin Topical (Clindamycin Phosphate) 1% Gel 1 Applic TOPICAL BID Review of Systems ROS Limitations: Poor Historian Mental Status Examination Appearance: Appropriate (dressed in [facility]) Consciousness: Alert Orientation: x4 Motor Activity: Abnormal gait Speech: Unremarkable Language: Adequate Fund of Knowledge: Adequate (to poor) Attention and Concentration: Adequate Memory: Unremarkable Mood: Appropriate Affect: Appropriate Thought Process & Associations: Intact Thought Content: Appropriate Hallucination Type: None Delusion Type: None Suicidal Ideation: No Suicidal Plan: No Suicidal Intention: No Homicidal Ideation: No Homicidal Plan: No Homicidal Intention: No Insight: Poor Judgment: Impulsive MDM Medical Decision Making Medical Record Reviewed: Yes Assessment/Plan 26-year-old female with history of intellectual disability, adjustment disorder , record history of schizophrenia, as well as factitious disorder who presents to the emergency room under Morales act initiated by Police Department. The Morales act alleges that they responded to a call in reference to a mentally ill person. The officer observed the patient sitting next to the side of the road next to her counselor. The counselor reported that the patient had jumped out of their van while transporting her back to her group room. Patient also began to bang her head against the sidewalk when in the presence of the officers. Patient reported to ED staff that she was having a crisis, feeling depressed and that she wanted to . Patient has been monitored both the main ED and in J pod for over 24 hours. She has been attention seeking at times but has not engaged in any self-injurious behavior. She has been appropriate and her in her interactions with staff. Patient does not meet criteria for the Morales act. There is no evidence of any unstable mental illness as described under the Morales act. Appears to be engaging in attention seeking behavior completely under her control. The Morales act is lifted. Return to correction. Psychiatrically clear for discharge from ED Orders Orders Complete Blood Count With Diff (09/30/17 13:33) Basic Metabolic Panel (Bmp) (09/30/17 13:33) Urinalysis - C+S If Indicated (09/30/17 13:33) Ed Urine Pregnancytest Poc (09/30/17 13:33) Psych Screen (09/30/17 13:33) Drug Screen, Random Urine (09/30/17 13:33) Alcohol (Ethanol) (09/30/17 13:33) Urine Culture (09/30/17 13:30) Fluconazole (Diflucan) (09/30/17 16:45) Diet Regular Basic (10/01/17 Breakfast) Diphenhydramine (Benadryl) (10/01/17 08:30) Diet Regular Basic (10/01/17 Lunch) Results Vital Signs Date Time Temp Pulse Resp B/P (MAP) Pulse Ox O2 Delivery O2 Flow Rate FiO2 10/01/17 11:12 97.4 81 17 130/71 (90) 95 Room Air 10/01/17 06:24 92 18 125/78 (94) 95 Room Air 10/01/17 02:44 68 16 128/64 (85) 97 Room Air 09/30/17 23:32 98.2 100 17 147/88 (107) 96 09/30/17 19:24 83 159/94 (115) 09/30/17 19:23 94 178/116 (136) 100 Room Air 09/30/17 13:56 96 20 09/30/17 12:40 98.4 98 16 145/97 (113) 98 Laboratory Tests Test 09/30/17 13:30 09/30/17 13:33 09/30/17 14:35 Urine Color LIGHT-YELLOW Urine Turbidity CLEAR Urine pH 6.5 Urine Specific [place] 1.004 Urine Protein NEG Urine Glucose (UA) NEG Urine Ketones NEG Urine Occult Blood NEG Urine Nitrite NEG Urine Bilirubin NEG Urine Urobilinogen LESS THAN 2.0 Urine Leukocyte Esterase TRACE Urine RBC 0-3 Urine WBC 0-2 Urine Squamous Epithelial Cells 0-5 Urine Bacteria MOD Microscopic Urinalysis Comment CULTURE INDICATED Urine Opiates Screen NEG Urine Barbiturates Screen NEG Urine Amphetamines Screen NEG Urine Benzodiazepines Screen NEG Urine Cocaine Screen NEG Urine Cannabinoids Screen NEG White Blood Count 12.8 Red Blood Count 4.98 Hemoglobin 15.2 Hematocrit 44.7 Mean Corpuscular Volume 89.7 Mean Corpuscular Hemoglobin 30.5 Mean Corpuscular Hemoglobin Concent 34.0 Red Cell Distribution Width 13.8 Platelet Count 363 Mean Platelet Volume 6.7 Neutrophils (%) (Auto) 82.5 Lymphocytes (%) (Auto) 12.5 Monocytes (%) (Auto) 4.5 Eosinophils (%) (Auto) 0.2 Basophils (%) (Auto) 0.3 Neutrophils # (Auto) 10.6 Lymphocytes # (Auto) 1.6 Monocytes # (Auto) 0.6 Eosinophils # (Auto) 0.0 Basophils # (Auto) 0.0 CBC Comment DIFF FINAL Differential Comment Blood Urea Nitrogen 11 Creatinine 1.02 Random Glucose 81 Calcium Level 9.9 Sodium Level 144 Potassium Level 3.8 Chloride Level 109 Carbon Dioxide Level 27.6 Anion Gap 7 Estimat Glomerular Filtration Rate 66 Ethyl Alcohol Level LESS THAN 3 Date/Time Source Procedure Growth Status 09/30/17 13:30 Urine Clean Catch Urine Culture Pending Worksheet Diagnosis Primary Impression: Adjustment disorder Psychiatrically Cleared: Yes Disposition: 01 DISCHARGE HOME Condition: Stable Problem Qualifiers Primary Impression: Adjustment disorder Qualified Codes: F43.25 - Adjustment disorder with mixed disturbance of emotions and conduct Xiomara Fermin Oct 01, 2017 12:38
--- NOTE | 2017-10-01 13:16 | PD ---
Physical Exam Date Seen by Provider: Oct 01, 2017 Time Seen by Provider: 13:30 Narrative 26-year-old female presents emergency department as a Morales act. Patient has subsequently been medically cleared, psychiatrically cleared and a Morales act has been lifted. I was asked to disposition the patient. Data Data Last Documented VS Vital Signs Date Time Temp Pulse Resp B/P (MAP) Pulse Ox O2 Delivery O2 Flow Rate FiO2 10/01/17 13:15 10/01/17 11:12 97.4 81 17 95 Room Air Orders Orders Complete Blood Count With Diff (09/30/17 13:33) Basic Metabolic Panel (Bmp) (09/30/17 13:33) Urinalysis - C+S If Indicated (09/30/17 13:33) Ed Urine Pregnancytest Poc (09/30/17 13:33) Psych Screen (09/30/17 13:33) Drug Screen, Random Urine (09/30/17 13:33) Alcohol (Ethanol) (09/30/17 13:33) Urine Culture (09/30/17 13:30) Fluconazole (Diflucan) (09/30/17 16:45) Diet Regular Basic (10/01/17 Breakfast) Diphenhydramine (Benadryl) (10/01/17 08:30) Diet Regular Basic (10/01/17 Lunch) Ed Discharge Order (10/01/17 13:16) Labs Laboratory Tests Test 09/30/17 13:30 09/30/17 13:33 09/30/17 14:35 Urine Color LIGHT-YELLOW Urine Turbidity CLEAR Urine pH 6.5 Urine Specific [place] 1.004 Urine Protein NEG mg/dL Urine Glucose (UA) NEG mg/dL Urine Ketones NEG mg/dL Urine Occult Blood NEG Urine Nitrite NEG Urine Bilirubin NEG Urine Urobilinogen LESS THAN 2.0 MG/DL Urine Leukocyte Esterase TRACE Urine RBC 0-3 /hpf Urine WBC 0-2 /hpf Urine Squamous Epithelial Cells 0-5 /hpf Urine Bacteria MOD /hpf Microscopic Urinalysis Comment CULTURE INDICATED Urine Opiates Screen NEG Urine Barbiturates Screen NEG Urine Amphetamines Screen NEG Urine Benzodiazepines Screen NEG Urine Cocaine Screen NEG Urine Cannabinoids Screen NEG White Blood Count 12.8 TH/MM3 Red Blood Count 4.98 MIL/MM3 Hemoglobin 15.2 GM/DL Hematocrit 44.7 % Mean Corpuscular Volume 89.7 FL Mean Corpuscular Hemoglobin 30.5 PG Mean Corpuscular Hemoglobin Concent 34.0 % Red Cell Distribution Width 13.8 % Platelet Count 363 TH/MM3 Mean Platelet Volume 6.7 FL Neutrophils (%) (Auto) 82.5 % Lymphocytes (%) (Auto) 12.5 % Monocytes (%) (Auto) 4.5 % Eosinophils (%) (Auto) 0.2 % Basophils (%) (Auto) 0.3 % Neutrophils # (Auto) 10.6 TH/MM3 Lymphocytes # (Auto) 1.6 TH/MM3 Monocytes # (Auto) 0.6 TH/MM3 Eosinophils # (Auto) 0.0 TH/MM3 Basophils # (Auto) 0.0 TH/MM3 CBC Comment DIFF FINAL Differential Comment Blood Urea Nitrogen 11 MG/DL Creatinine 1.02 MG/DL Random Glucose 81 MG/DL Calcium Level 9.9 MG/DL Sodium Level 144 MEQ/L Potassium Level 3.8 MEQ/L Chloride Level 109 MEQ/L Carbon Dioxide Level 27.6 MEQ/L Anion Gap 7 MEQ/L Estimat Glomerular Filtration Rate 66 ML/MIN Ethyl Alcohol Level LESS THAN 3 MG/DL MDM Supervised Visit with AMIE: Yes Differential Diagnosis Depression versus suicidal ideation versus anxiety versus adjustment disorder versus mood disorder versus bipolar disorder versus schizophrenia versus paranoid disorder versus psychosis versus substance abuse versus alcohol abuse versus alcohol induced psychosis versus homicidality addition versus cutting versus personality disorder Narrative Course 26-year-old female with a history of cognitive delay and mental retardation presents emergency department for evaluation as a Morales act. Patient was subsequently cleared medically and psychiatrically and a Morales act has been lifted. He she will be discharged back to her [place] [facility]. Diagnosis Primary Impression: Adjustment disorder Qualified Codes: F43.25 - Adjustment disorder with mixed disturbance of emotions and conduct Patient Instructions: General Instructions, Medical Clearance for Psychiatric Care (ED) Disposition: DISCHARGE HOME Condition: Stable Destinee Madsen JERARDO Oct 01, 2017 13:16
== END 2017-10-01 13:31 | disposition home or self-care (01) ==
LOC: NEPD 12:25 → NEPJ 10-01 13:31
DX: F43.25 Adjustment disorder with mixed disturbance of emotions and conduct (principal); F79 Unspecified intellectual disabilities; Z79.899 Other long term (current) drug therapy
CPT/HCPCS: 80048; 80307; 81001; 84703; 85025; 87086; 99284; Q0163

== ENCOUNTER → 2018-01-09 | Outpatient (CLI) | payer OTHER ==
[~2018-01-09] MED LIST changes: -CYAN100015 IM; +DEPO150I IM; -LEVOTAB25 PO; -NU-IRON PO
--- NOTE | 2018-01-10 22:54 | EKG ---
Date Performed: 01/09/2018 Time Performed: 11:25:26 PTAGE: 27 years EKG: Sinus tachycardia Normal ECG except for rate NO PREVIOUS TRACING DOCTOR: Nathanael Banks Interpretating Date/Time 01/10/2018 22:52:03
== END ==
LOC: HCAV 11:14
PROVIDERS: ATTEND Family Medicine Geriatric Medicine
DX: K30 Functional dyspepsia (principal); R00.0 Tachycardia, unspecified
CPT/HCPCS: 93005

== ENCOUNTER 2018-02-06 20:06 | Emergency (ER) | payer OTHER ==
[2018-02-06 20:40] VITALS: BP 156/80; PULSE 87; RESP 18; TEMP 96.9; O2SAT 99
[2018-02-06] MEDS ORDERED: LITH300C2 PO (21:14)
[2018-02-06] MEDS ORDERED: LITH600C PO (21:15)
[2018-02-06] MEDS ORDERED: DOCU100C15 PO (21:16)
[2018-02-06] MEDS ORDERED: ARIP1TAB16 PO (21:19)
[2018-02-06 23:12] LABS: BACTERIA, URINE RARE /hpf; BILIRUBIN, URINE NEG (NEG); BLOOD, URINE NEG (NEG); GLUCOSE,URINE NEG (NEG); KETONE, URINE NEG (NEG); NITRITE,URINE NEG (NEG); SQUAMOUS EPITHELIAL CELL URINE <1 /hpf (0-5); URINE COLOR LIGHT-YELLOW (YELLW/STRAW); URINE LEUKOCYTE ESTERASE NEG (NEG)
--- NOTE | 2018-02-06 23:40 | PD ---
HPI Chief Complaint: Psychiatric Symptoms Time Seen by Provider: 23:31 Travel History International Travel<30 days: No Contact w/Intl Traveler<30days: No Traveled to known affect area: No History of Present Illness HPI The patient is a 27-year-old female who presents to the emergency department as a Morales act. The patient has a history of cerebral palsy and a stroke at , lives in a [facility]. The patient states she was under stress earlier today because she learned her grandfather, who lives in [place], has cancer in his blood. The patient states she was stressed out and things were not going well at the [facility]. The patient states she tried to run away 3 times and had thoughts of harming herself. The patient states she bit her left hand, has a history of biting in an attempt to harm herself. The patient does note that she has a history of schizoaffective disorder needs her medications. She complains of being "stressed out", but denies any acute chest pain, shortness of breath, nausea, vomiting, or abdominal pain. She does have a history of stroke at which left her with limited abilities of the right upper extremity and right lower extremity. PFSH Past Medical History Anxiety: Yes Cerebral Palsy: Yes Cerebrovascular Accident: Yes (at ) Developmental Delay: Yes Diminished Hearing: No Endocrine: No Gastrointestinal Disorders: No Genitourinary: No Headaches: No Immune Disorder: No Musculoskeletal: No Neurologic: Yes (right hand contracture) Psychiatric: Yes (Hx of treatment for Schizoaffective Disorder) Reproductive: No Respiratory: No Immunizations Current: Yes Migraines: No Pancreatitis: Yes Schizophrenia: Yes (HEARING HALLUCINATION SINCE 10 YEARS OLD ) Seizures: Yes (see EMR) ?: Unknown Past Surgical History Cholecystectomy: Yes Thoracic Surgery: Yes (G-TUBE INSERTION AND REMOVAL) Other Surgery: Yes Social History Alcohol Use: No Tobacco Use: No Substance Use: No Allergies-Medications (Allergen,Severity, Reaction): Coded Allergies: Fish Containing Products (Unverified Allergy, Severe, Anaphylaxis, 02/06/18 ) shrimp (Verified Allergy, Intermediate, 02/06/18) Reported Meds & Prescriptions Reported Meds & Active Scripts Active Zyprexa Zydis (Olanzapine) 20 Mg Tab 20 Mg SL HS Ativan (Lorazepam) 0.5 Mg Tab 0.5 Mg PO BID Lamictal (Lamotrigine) 200 Mg Tab 200 Mg PO BID Levothyroxine (Levothyroxine Sodium) 88 Mcg Tab 88 Mcg PO DAILY Polyethylene Glycol 3350 (Polyethylene Glycol 3350 (Bulk) 1 Gra Gra 3,350 Meq PO DAILY 30 Days Reported Aripiprazole 2 Mg Tab 2 Mg PO HS Docusate Sodium 100 Mg Cap 200 Mg PO DAILY [place] Carbonate 600 Mg Cap 600 Mg PO HS [place] Carbonate 300 Mg Cap 300 Mg PO DAILY Depo-Provera Inj (Medroxyprogesterone Inj) 150 Mg/Ml Inj 150 Mg IM Q90D D 1000 (Cholecalciferol) 1,000 Unit Cap Prevident 5000 Sensitive 1.1-5 % (Sodium Fluoride-Potassium Nitr) 1 Pst Pst Unknown Dose PO HS Clindamycin Topical (Clindamycin Phosphate) 1% Gel 1 Applic TOPICAL BID Review of Systems Except as stated in HPI: all other systems reviewed are Neg General / Constitutional: No: Fever Cardiovascular: No: Chest Pain or Discomfort Respiratory: No: Shortness of Breath Gastrointestinal: No: Nausea, Vomiting, Abdominal Pain Musculoskeletal: Positive: Limited ROM Neurologic: Positive: Other (As noted in the history of present illness) Psychiatric: Positive: Depression, Disorder of Thought, Mood Disorder Physical Exam Narrative GENERAL: Awake, alert, pleasant 27-year-old female who appears her stated age and is in no acute respiratory distress. SKIN: Focused skin assessment warm/dry. HEAD: Atraumatic. Normocephalic. EYES: Pupils equal and round. 3 mm bilateral and reactive. ENT: No nasal bleeding or discharge. Mucous membranes pink and moist. NECK: Trachea midline. No JVD. CARDIOVASCULAR: Regular rate and rhythm. No murmur appreciated. RESPIRATORY: No accessory muscle use. Clear to auscultation. Breath sounds equal bilaterally. GASTROINTESTINAL: Abdomen soft, non-tender, nondistended. No rebound tenderness. MUSCULOSKELETAL: Patient has atrophy of the right hand with limited ability to extend the right elbow. The patient's right lower extremity is in a brace. NEUROLOGICAL: Awake and alert. No obvious cranial nerve deficits. Motor grossly within normal limits. Normal speech. PSYCHIATRIC: Appropriate mood and affect; insight and judgment normal. Data Data Last Documented VS Vital Signs Date Time Temp Pulse Resp B/P (MAP) Pulse Ox O2 Delivery O2 Flow Rate FiO2 02/06/18 20:40 96.9 87 18 156/80 (105) 99 Room Air Orders Orders Complete Blood Count With Diff (02/06/18 21:29) Comprehensive Metabolic Panel (02/06/18 21:29) Urinalysis - C+S If Indicated (02/06/18 21:29) Ed Urine Pregnancytest Poc (02/06/18 21:29) Psych Screen (02/06/18 21:29) [place] (Li) (02/06/18 21:29) Diet Regular Basic (02/07/18 Breakfast) Drug Screen, Random Urine (02/06/18 21:29) Lamotrigine (Lamictal) (02/06/18 23:45) Aripiprazole (Abilify) (02/06/18 23:45) Lorazepam (Ativan) (02/06/18 23:45) Olanzapine (Zyprexa) (02/06/18 23:45) [place] Carbonate ([place] Carbonate) (02/07/18 00:45) Labs Laboratory Tests Test 02/06/18 22:10 02/06/18 23:40 Urine Color LIGHT-YELLOW Urine Turbidity CLEAR Urine pH 6.0 Urine Specific [place] 1.003 Urine Protein NEG mg/dL Urine Glucose (UA) NEG mg/dL Urine Ketones NEG mg/dL Urine Occult Blood NEG Urine Nitrite NEG Urine Bilirubin NEG Urine Urobilinogen LESS THAN 2.0 MG/DL Urine Leukocyte Esterase NEG Urine WBC LESS THAN 1 /hpf Urine Squamous Epithelial Cells <1 /hpf Urine Bacteria RARE /hpf Microscopic Urinalysis Comment CULT NOT INDICATED Urine Opiates Screen NEG Urine Barbiturates Screen NEG Urine Amphetamines Screen NEG Urine Benzodiazepines Screen NEG Urine Cocaine Screen NEG Urine Cannabinoids Screen NEG White Blood Count 13.6 TH/MM3 Red Blood Count 4.72 MIL/MM3 Hemoglobin 14.1 GM/DL Hematocrit 41.0 % Mean Corpuscular Volume 87.0 FL Mean Corpuscular Hemoglobin 30.0 PG Mean Corpuscular Hemoglobin Concent 34.5 % Red Cell Distribution Width 13.5 % Platelet Count 365 TH/MM3 Mean Platelet Volume 6.7 FL Neutrophils (%) (Auto) 71.2 % Lymphocytes (%) (Auto) 23.2 % Monocytes (%) (Auto) 4.6 % Eosinophils (%) (Auto) 0.5 % Basophils (%) (Auto) 0.5 % Neutrophils # (Auto) 9.7 TH/MM3 Lymphocytes # (Auto) 3.2 TH/MM3 Monocytes # (Auto) 0.6 TH/MM3 Eosinophils # (Auto) 0.1 TH/MM3 Basophils # (Auto) 0.1 TH/MM3 CBC Comment DIFF FINAL Differential Comment Blood Urea Nitrogen 10 MG/DL Creatinine 1.03 MG/DL Random Glucose 120 MG/DL Total Protein 7.4 GM/DL Albumin 4.0 GM/DL Calcium Level 9.1 MG/DL Alkaline Phosphatase 135 U/L Aspartate Amino Transf (AST/SGOT) 13 U/L Alanine Aminotransferase (ALT/SGPT) 19 U/L Total Bilirubin 0.5 MG/DL Sodium Level 143 MEQ/L Potassium Level 3.6 MEQ/L Chloride Level 110 MEQ/L Carbon Dioxide Level 24.0 MEQ/L Anion Gap 9 MEQ/L Estimat Glomerular Filtration Rate 65 ML/MIN [place] Level 0.4 MEQ/L [facility] Medical Decision Making Medical Screen Exam Complete: Yes Emergency Medical Condition: Yes Medical Record Reviewed: Yes Interpretation(s) Laboratory Tests Test 02/06/18 22:10 02/06/18 23:40 Urine Color LIGHT-YELLOW Urine Turbidity CLEAR Urine pH 6.0 Urine Specific [place] 1.003 Urine Protein NEG mg/dL Urine Glucose (UA) NEG mg/dL Urine Ketones NEG mg/dL Urine Occult Blood NEG Urine Nitrite NEG Urine Bilirubin NEG Urine Urobilinogen LESS THAN 2.0 MG/DL Urine Leukocyte Esterase NEG Urine WBC LESS THAN 1 /hpf Urine Squamous Epithelial Cells <1 /hpf Urine Bacteria RARE /hpf Microscopic Urinalysis Comment CULT NOT INDICATED Urine Opiates Screen NEG Urine Barbiturates Screen NEG Urine Amphetamines Screen NEG Urine Benzodiazepines Screen NEG Urine Cocaine Screen NEG Urine Cannabinoids Screen NEG White Blood Count 13.6 TH/MM3 Red Blood Count 4.72 MIL/MM3 Hemoglobin 14.1 GM/DL Hematocrit 41.0 % Mean Corpuscular Volume 87.0 FL Mean Corpuscular Hemoglobin 30.0 PG Mean Corpuscular Hemoglobin Concent 34.5 % Red Cell Distribution Width 13.5 % Platelet Count 365 TH/MM3 Mean Platelet Volume 6.7 FL Neutrophils (%) (Auto) 71.2 % Lymphocytes (%) (Auto) 23.2 % Monocytes (%) (Auto) 4.6 % Eosinophils (%) (Auto) 0.5 % Basophils (%) (Auto) 0.5 % Neutrophils # (Auto) 9.7 TH/MM3 Lymphocytes # (Auto) 3.2 TH/MM3 Monocytes # (Auto) 0.6 TH/MM3 Eosinophils # (Auto) 0.1 TH/MM3 Basophils # (Auto) 0.1 TH/MM3 CBC Comment DIFF FINAL Differential Comment Blood Urea Nitrogen 10 MG/DL Creatinine 1.03 MG/DL Random Glucose 120 MG/DL Total Protein 7.4 GM/DL Albumin 4.0 GM/DL Calcium Level 9.1 MG/DL Alkaline Phosphatase 135 U/L Aspartate Amino Transf (AST/SGOT) 13 U/L Alanine Aminotransferase (ALT/SGPT) 19 U/L Total Bilirubin 0.5 MG/DL Sodium Level 143 MEQ/L Potassium Level 3.6 MEQ/L Chloride Level 110 MEQ/L Carbon Dioxide Level 24.0 MEQ/L Anion Gap 9 MEQ/L Estimat Glomerular Filtration Rate 65 ML/MIN [place] Level 0.4 MEQ/L Differential Diagnosis Differential diagnosis includes schizoaffective disorder, bipolar affective disorder, depressive disorder NOS, l subtherapeutic lithium level, supratherapeutic lithium level, mood disorder NOS. Narrative Course Labs were drawn and sent. Psychiatric screen was ordered. The patient was administered her nighttime dose of medications. [place] level was less than 0.4 , therefore, patient was administered her nighttime dose of lithium 600 mg orally. Labs were noted, patient is medically cleared to be evaluated by psychiatry. Disposition as per psych. Diagnosis Primary Impression: Disruptive mood dysregulation disorder Additional Impressions: schizophrenic disorder chronic paranoid type History of cerebral palsy Condition: Stable Troy Thomson MD Feb 06, 2018 23:40
[2018-02-06] MEDS ORDERED: lamoTRIgine 100 MG TAB PO ONE (23:45)
[2018-02-06] MEDS ORDERED: LORazepam 0.5 MG TAB PO ONE (23:45)
[2018-02-06] MEDS ORDERED: ARIPiprazole 2 MG TAB PO ONE (23:45)
[2018-02-06] MEDS: OLANZapine 10 MG TAB PO ONE (23:47)
[2018-02-06 23:50] LABS: AUTOMATED NEUTROPHIL # 9.7 TH/MM3 (1.8-7.7); BASOPHIL # 0.1 TH/MM3 (0-0.2); BASOPHIL % 0.5 % (0.0-2.0); EOSINOPHIL # 0.1 TH/MM3 (0-0.4); EOSINOPHIL % 0.5 % (0.0-4.0); HEMOGLOBIN 14.1 GM/DL (11.6-15.3); LYMPH % 23.2 % (9.0-44.0); LYMPHOCYTE # 3.2 TH/MM3 (1.0-4.8); MEAN CORPUSCULAR HGB CONC 34.5 % (32.0-36.0); MEAN PLATELET VOLUME 6.7 FL (7.0-11.0); MONO % 4.6 % (0.0-8.0); MONOCYTE # 0.6 TH/MM3 (0-0.9); NEUT % 71.2 % (16.0-70.0); PLATELET COUNT 365 TH/MM3 (150-450); RED BLOOD COUNT 4.72 MIL/MM3 (4.00-5.30); RED CELL DISTRIBUTION WIDTH 13.5 % (11.6-17.2); WHITE BLOOD COUNT 13.6 TH/MM3 (4.0-11.0)
[2018-02-07 00:12] LABS: ALT (GPT) 19 U/L (10-53); AST (GOT) 13 U/L (15-37); BLOOD UREA NITROGEN 10 MG/DL (7-18); CALCIUM 9.1 MG/DL (8.5-10.1); CHLORIDE 110 MEQ/L (98-107); CREATININE 1.03 MG/DL (0.50-1.00); GLOMERULAR FILTRATION RATE 65 ML/MIN (>89); GLUCOSE,RANDOM 120 MG/DL (74-106); SODIUM (NA) 143 MEQ/L (136-145)
[2018-02-07] MEDS: OLANZapine 10 MG TAB PO ONE (00:14)
[2018-02-07 00:15] LABS: ALKALINE PHOSPHATASE 135 U/L (45-117); TOTAL BILIRUBIN ADULT 0.5 MG/DL (0.2-1.0); TOTAL PROTEIN 7.4 GM/DL (6.4-8.2)
[2018-02-07] MEDS ORDERED: LITHIUM CARBONATE 300 MG CAP PO ONE (00:45)
--- NOTE | 2018-02-07 09:34 | PD ---
History of Present Illness Chief Complaint: Adjustment disorder Time Seen by Provider: 09:00 Travel History International Travel<30 Days: No Contact w/Intl Traveler<30days: No Known affected area: No Legal Status Legal Status: Morales Act Morales Act Signed By: Sandy Quinones History of Present Illness: This is a 27-year-old, single, female who presents under Morales act by police for running away from a fdc and biting herself. Patient is well- known to this facility has had multiple inpatient admissions. Reviewed electronic medical record, labs, and discussed case with staff. Her lithium level is slightly sub-therapeutic at 0.4. Evaluated patient in her room in the main ED. Patient is awake, alert, and oriented. Her speech is clear, logical, and organized. She does not appear to be in any distress at this time. She denies suicidal ideation, homicidal ideation, visual or auditory hallucinations. Patient reported that she was "stressed". When asked why she was here she stated "for running away from my home 3 times". Spoke with patient's mother who is her legal guardian, and she advises that patient is a "frequent flyer" to this facility. Her mother advises that this she feels this is all behavioral. Additionally, she states that patient made 2 attempts to come to this facility yesterday with the second one being successful. Mother reports that patient's fdc is ready to come pick her up and she would like her discharged to their care. [facility] Past Medical History Anxiety: Yes Cerebral Palsy: Yes Cerebrovascular Accident: Yes (at ) Developmental Delay: Yes Diminished Hearing: No Endocrine: No Gastrointestinal Disorders: No Genitourinary: No Headaches: No Immune Disorder: No Musculoskeletal: No Neurologic: Yes (right hand contracture) Psychiatric: Yes (Hx of treatment for Schizoaffective Disorder) Reproductive: No Respiratory: No Immunizations Current: Yes Migraines: No Pancreatitis: Yes Schizophrenia: Yes (HEARING HALLUCINATION SINCE 10 YEARS OLD ) Seizures: Yes (see EMR) ?: Unknown Past Surgical History Cholecystectomy: Yes Thoracic Surgery: Yes (G-TUBE INSERTION AND REMOVAL) Other Surgery: Yes Psychiatric History Psychiatric History Patient is well-known to this facility with multiple admissions. Hx Psychiatric Treatment: Last inpatient admission was Nov 26-2016 for adjustment disorders. History of Inpatient Treatment: Yes Social History Lives in a behavioral fdc. Hx Alcohol Use: No Hx Tobacco Use: No Hx Substance Use: No Hx of Substance Use Treatment: No Allergies-Medications (Allergen,Severity, Reaction): Coded Allergies: Fish Containing Products (Unverified Allergy, Severe, Anaphylaxis, 02/06/18 ) shrimp (Verified Allergy, Intermediate, 02/06/18) Reported Meds & Prescriptions Reported Meds & Active Scripts Active Zyprexa Zydis (Olanzapine) 20 Mg Tab 20 Mg SL HS Ativan (Lorazepam) 0.5 Mg Tab 0.5 Mg PO BID Lamictal (Lamotrigine) 200 Mg Tab 200 Mg PO BID Levothyroxine (Levothyroxine Sodium) 88 Mcg Tab 88 Mcg PO DAILY Polyethylene Glycol 3350 (Polyethylene Glycol 3350 (Bulk) 1 Gra Gra 3,350 Meq PO DAILY 30 Days Reported Aripiprazole 2 Mg Tab 2 Mg PO HS Docusate Sodium 100 Mg Cap 200 Mg PO DAILY [place] Carbonate 600 Mg Cap 600 Mg PO HS [place] Carbonate 300 Mg Cap 300 Mg PO DAILY Depo-Provera Inj (Medroxyprogesterone Inj) 150 Mg/Ml Inj 150 Mg IM Q90D D 1000 (Cholecalciferol) 1,000 Unit Cap Prevident 5000 Sensitive 1.1-5 % (Sodium Fluoride-Potassium Nitr) 1 Pst Pst Unknown Dose PO HS Clindamycin Topical (Clindamycin Phosphate) 1% Gel 1 Applic TOPICAL BID Mental Status Examination Appearance: Appropriate, Well dressed/well groomed Consciousness: Alert Orientation: Person, Place, Situation Motor Activity: Normal gait Speech: Unremarkable Language: Adequate Fund of Knowledge: Inadequate Attention and Concentration: Adequate Memory: Unremarkable Mood: Appropriate Affect: Appropriate Thought Process & Associations: Intact Thought Content: Appropriate Hallucination Type: None Delusion Type: None Suicidal Ideation: No Suicidal Plan: No Suicidal Intention: No Homicidal Ideation: No Homicidal Plan: No Homicidal Intention: No Insight: Adequate Judgment: Adequate [facility] Medical Decision Making Medical Record Reviewed: Yes Assessment/Plan This is a 27-year-old single, female who presents to this facility under Morales act for running away from her fdc. Patient is well-known to this facility with multiple visits and admissions. Evaluated patient in her room where she was found sitting up in a stretcher watching television. She is awake, alert, and oriented. Her speech is clear, logical, and organized. She denies any thoughts of self-harm, hurting others, visual or auditory hallucinations. She does report that she has a history of biting herself. She does not appear delusional at this time. Upon speaking with her mother, who has legal guardianship, patient will be discharged back to her fdc. The mother feels this is all behavioral and reports that patient makes frequent attempts to come to this facility. Discussed this case with Dr. Leiva, who also assessed the patient and agrees the patient be discharged. He has lifted the Morales act and patient will be returned to her fdc. Orders Orders Complete Blood Count With Diff (02/06/18 21:29) Comprehensive Metabolic Panel (02/06/18 21:29) Urinalysis - C+S If Indicated (02/06/18 21:29) Ed Urine Pregnancytest Poc (02/06/18 21:29) Psych Screen (02/06/18 21:29) [place] (Li) (02/06/18 21:29) Diet Regular Basic (02/07/18 Breakfast) Drug Screen, Random Urine (02/06/18 21:29) Lamotrigine (Lamictal) (02/06/18 23:45) Aripiprazole (Abilify) (02/06/18 23:45) Lorazepam (Ativan) (02/06/18 23:45) Olanzapine (Zyprexa) (02/06/18 23:45) [place] Carbonate ([place] Carbonate) (02/07/18 00:45) Results Vital Signs Date Time Temp Pulse Resp B/P (MAP) Pulse Ox O2 Delivery O2 Flow Rate FiO2 02/06/18 20:40 96.9 87 18 156/80 (105) 99 Room Air Laboratory Tests Test 02/06/18 22:10 02/06/18 23:40 Urine Color LIGHT-YELLOW Urine Turbidity CLEAR Urine pH 6.0 Urine Specific [place] 1.003 Urine Protein NEG Urine Glucose (UA) NEG Urine Ketones NEG Urine Occult Blood NEG Urine Nitrite NEG Urine Bilirubin NEG Urine Urobilinogen LESS THAN 2.0 Urine Leukocyte Esterase NEG Urine WBC LESS THAN 1 Urine Squamous Epithelial Cells <1 Urine Bacteria RARE Microscopic Urinalysis Comment CULT NOT INDICATED Urine Opiates Screen NEG Urine Barbiturates Screen NEG Urine Amphetamines Screen NEG Urine Benzodiazepines Screen NEG Urine Cocaine Screen NEG Urine Cannabinoids Screen NEG White Blood Count 13.6 Red Blood Count 4.72 Hemoglobin 14.1 Hematocrit 41.0 Mean Corpuscular Volume 87.0 Mean Corpuscular Hemoglobin 30.0 Mean Corpuscular Hemoglobin Concent 34.5 Red Cell Distribution Width 13.5 Platelet Count 365 Mean Platelet Volume 6.7 Neutrophils (%) (Auto) 71.2 Lymphocytes (%) (Auto) 23.2 Monocytes (%) (Auto) 4.6 Eosinophils (%) (Auto) 0.5 Basophils (%) (Auto) 0.5 Neutrophils # (Auto) 9.7 Lymphocytes # (Auto) 3.2 Monocytes # (Auto) 0.6 Eosinophils # (Auto) 0.1 Basophils # (Auto) 0.1 CBC Comment DIFF FINAL Differential Comment Blood Urea Nitrogen 10 Creatinine 1.03 Random Glucose 120 Total Protein 7.4 Albumin 4.0 Calcium Level 9.1 Alkaline Phosphatase 135 Aspartate Amino Transf (AST/SGOT) 13 Alanine Aminotransferase (ALT/SGPT) 19 Total Bilirubin 0.5 Sodium Level 143 Potassium Level 3.6 Chloride Level 110 Carbon Dioxide Level 24.0 Anion Gap 9 Estimat Glomerular Filtration Rate 65 [place] Level 0.4 Diagnosis Primary Impression: Adjustment disorder Condition: Stable Estrella Gan Feb 07, 2018 09:34
--- NOTE | 2018-02-07 10:25 | PD ---
Data Data Last Documented VS Vital Signs Date Time Temp Pulse Resp B/P (MAP) Pulse Ox O2 Delivery O2 Flow Rate FiO2 02/06/18 20:40 96.9 87 18 156/80 (105) 99 Room Air Orders Orders Complete Blood Count With Diff (02/06/18 21:29) Comprehensive Metabolic Panel (02/06/18 21:29) Urinalysis - C+S If Indicated (02/06/18 21:29) Ed Urine Pregnancytest Poc (02/06/18 21:29) Psych Screen (02/06/18 21:29) [place] (Li) (02/06/18 21:29) Diet Regular Basic (02/07/18 Breakfast) Drug Screen, Random Urine (02/06/18 21:29) Lamotrigine (Lamictal) (02/06/18 23:45) Aripiprazole (Abilify) (02/06/18 23:45) Lorazepam (Ativan) (02/06/18 23:45) Olanzapine (Zyprexa) (02/06/18 23:45) [place] Carbonate ([place] Carbonate) (02/07/18 00:45) Ed Discharge Order (02/07/18 10:23) Labs Laboratory Tests Test 02/06/18 22:10 02/06/18 23:40 Urine Color LIGHT-YELLOW Urine Turbidity CLEAR Urine pH 6.0 Urine Specific [place] 1.003 Urine Protein NEG mg/dL Urine Glucose (UA) NEG mg/dL Urine Ketones NEG mg/dL Urine Occult Blood NEG Urine Nitrite NEG Urine Bilirubin NEG Urine Urobilinogen LESS THAN 2.0 MG/DL Urine Leukocyte Esterase NEG Urine WBC LESS THAN 1 /hpf Urine Squamous Epithelial Cells <1 /hpf Urine Bacteria RARE /hpf Microscopic Urinalysis Comment CULT NOT INDICATED Urine Opiates Screen NEG Urine Barbiturates Screen NEG Urine Amphetamines Screen NEG Urine Benzodiazepines Screen NEG Urine Cocaine Screen NEG Urine Cannabinoids Screen NEG White Blood Count 13.6 TH/MM3 Red Blood Count 4.72 MIL/MM3 Hemoglobin 14.1 GM/DL Hematocrit 41.0 % Mean Corpuscular Volume 87.0 FL Mean Corpuscular Hemoglobin 30.0 PG Mean Corpuscular Hemoglobin Concent 34.5 % Red Cell Distribution Width 13.5 % Platelet Count 365 TH/MM3 Mean Platelet Volume 6.7 FL Neutrophils (%) (Auto) 71.2 % Lymphocytes (%) (Auto) 23.2 % Monocytes (%) (Auto) 4.6 % Eosinophils (%) (Auto) 0.5 % Basophils (%) (Auto) 0.5 % Neutrophils # (Auto) 9.7 TH/MM3 Lymphocytes # (Auto) 3.2 TH/MM3 Monocytes # (Auto) 0.6 TH/MM3 Eosinophils # (Auto) 0.1 TH/MM3 Basophils # (Auto) 0.1 TH/MM3 CBC Comment DIFF FINAL Differential Comment Blood Urea Nitrogen 10 MG/DL Creatinine 1.03 MG/DL Random Glucose 120 MG/DL Total Protein 7.4 GM/DL Albumin 4.0 GM/DL Calcium Level 9.1 MG/DL Alkaline Phosphatase 135 U/L Aspartate Amino Transf (AST/SGOT) 13 U/L Alanine Aminotransferase (ALT/SGPT) 19 U/L Total Bilirubin 0.5 MG/DL Sodium Level 143 MEQ/L Potassium Level 3.6 MEQ/L Chloride Level 110 MEQ/L Carbon Dioxide Level 24.0 MEQ/L Anion Gap 9 MEQ/L Estimat Glomerular Filtration Rate 65 ML/MIN [place] Level 0.4 MEQ/L MDM Supervised Visit with AMIE: No Narrative Course Patient seen and examined by me at 10:20 AM, this is a 27-year-old female with a history of cerebral palsy and behavioral disorder [place] [facility] [place] , her Morales act has been lifted by psychiatry is been deemed not a threat to herself or others and stable for discharge. She has noted no medical complaints at this time. Her chief concern is that her mom was too far away from her. At this time she is stable from discharge facility, will touch base with case management for transportation back [place] [facility] [place] Diagnosis Primary Impression: Adjustment disorder Disposition: 01 DISCHARGE HOME ((Custodial)) Condition: Stable Tony Garnett MD Feb 07, 2018 10:25
--- NOTE | 2018-02-07 14:47 | PD.PSY.CON ---
Provisional Diagnosis Admission Date [place] I. 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 Documentation was reviewed, case discussed with medical staff and nursing staff. Her lithium level is 0.4. Evaluated patient in her room in the main ED. Patient is awake, alert, and oriented. She is irritable and a little bit oppositional, but redirectable. Other than that, the patient is logical, coherent and relevant. She does not appear to be in any distress at this time. She denies suicidal ideation, homicidal ideation, visual or auditory hallucinations. Patient reported that she was "stressed". When asked why she was here she stated "for running away from my home 3 times". Spoke with patient's mother who is her legal guardian, and she advises that patient is a "frequent flyer" to this facility. Her mother advises that this she feels this is all behavioral. Additionally, she states that patient made 2 attempts to come to this facility yesterday with the second one being successful. Mother reports that patient's fci is ready to come pick her up and she would like her discharged to their care. Review of Systems Endocrine: DENIES: Abnorml menstrual pattern, Heat/cold intolerance, Polydipsia , Polyuria, Polyphagia Eyes: DENIES: Blurred vision, Diplopia, Eye inflammation, Eye pain, Vision loss , Photosensitivity, Double Vision Ears, nose, mouth, throat: DENIES: Tinnitus, Hearing loss, Vertigo, Nasal discharge, Oral lesions, Throat pain, Hoarseness, Ear Pain, Running Nose, Epistaxis, Sinus Pain, Toothache, Odynophagia Respiratory: DENIES: Apneas, Cough, Snoring, Wheezing, Hemoptysis, Sputum production, Shortness of breath Cardiovascular: DENIES: Chest pain, Palpitations, Syncope, Dyspnea on Exertion , PND, Lower Extremity Edema, Orthopnea, Claudication Gastrointestinal: DENIES: Abdominal pain, Black stools, Bloody stools, Constipation, Diarrhea, Nausea, Vomiting, Difficulty Swallowing, Anorexia Genitourinary: DENIES: Abnormal vaginal bleeding, Dysmenorrhea, Dyspareunia, Sexual dysfunction, Urinary frequency, Urinary incontinence, Urgency, Hematuria , Dysuria, Nocturia, Vaginal discharge Musculoskeletal: DENIES: Joint pain, Muscle aches, Stiffness, Joint Swelling, Back pain, Neck pain Integumentary: DENIES: Abnormal pigmentation, Pruritus, Rash, Nail changes, Breast masses, Breast skin changes, Nipple discharge Hematologic/lymphatic: DENIES: Bruising, Lymphadenopathy Immunologic/allergic: DENIES: Eczema, Urticaria Neurologic: DENIES: Abnormal gait, Headache, Localized weakness, Paresthesias, Seizures, Speech Problems, Tremor, Poor Balance Psychiatric: DENIES: Anxiety, Confusion, Mood changes, Depression, Hallucinations, Agitation, Suicidal Ideation, Homicidal Ideation, Delusions Past Family Social History Coded Allergies: Fish Containing Products (Unverified Allergy, Severe, Anaphylaxis, 02/06/18 ) shrimp (Verified Allergy, Intermediate, 02/06/18) Active Scripts Olanzapine Odt (Zyprexa Zydis) 20 Mg Tab, 20 MG SL HS for health, #30 TAB 2 Refills Prov:Donny Dillon MD 11/18/16 Lorazepam (Ativan) 0.5 Mg Tab, 0.5 MG PO BID for anxiety, #60 TAB 2 Refills Prov:Donny Dillon MD 11/17/16 Lamotrigine (Lamictal) 200 Mg Tab, 200 MG PO BID for health, #60 TAB 2 Refills Prov:Donny Dillon MD 11/17/16 Levothyroxine (Levothyroxine) 88 Mcg Tab, 88 MCG PO DAILY for Thyroid, #30 TAB 2 Refills Prov:Donny Dillon MD 11/17/16 Polyethylene Glycol 3350 (Bulk (Polyethylene Glycol 3350) 1 Gra Gra, 3350 MEQ PO DAILY for Constipation for 30 Days, BOX Prov:Donny Dillon MD 09/21/16 Reported Medications Aripiprazole (Aripiprazole) 2 Mg Tab, 2 MG PO HS, #30 TAB 0 Refills 02/06/18 Docusate Sodium (Docusate Sodium) 100 Mg Cap, 200 MG PO DAILY for Prevent Constipation, #60 CAP 0 Refills 02/06/18 [place] Carbonate ([place] Carbonate) 600 Mg Cap, 600 MG PO HS, CAP 0 Refills 02/06/18 [place] Carbonate ([place] Carbonate) 300 Mg Cap, 300 MG PO DAILY, CAP 0 Refills 02/06/18 Medroxyprogesterone Inj (Depo-Provera Inj) 150 Mg/Ml Inj, 150 MG IM Q90D for Control, VIAL 0 Refills 09/30/17 Cholecalciferol (D 1000) 1,000 Unit Cap 11/23/16 Sodium Fluoride-Potassium Nitr (Prevident 5000 Sensitive 1.1-5 %) 1 Pst Pst, PO HS 11/23/16 Clindamycin Topical (Clindamycin Topical) 1% Gel, 1 APPLIC TOPICAL BID for ACNE , #30 GM 0 Refills 11/23/16 Discontinued Scripts [place] Carbonate ([place] Carbonate) 300 Mg Cap, 300 MG PO 3 hs for health, # 90 CAP 2 Refills Prov:Donny Dillon MD 11/17/16 Physical Exam Vital Signs Vital Signs Date Time Temp Pulse Resp B/P (MAP) Pulse Ox O2 Delivery O2 Flow Rate FiO2 02/07/18 12:05 02/06/18 20:40 96.9 87 18 99 Room Air Lab Results Test 02/06/18 22:10 02/06/18 23:40 Urine Color LIGHT-YELLOW Urine Turbidity CLEAR Urine pH 6.0 Urine Specific [place] 1.003 Urine Protein NEG mg/dL Urine Glucose (UA) NEG mg/dL Urine Ketones NEG mg/dL Urine Occult Blood NEG Urine Nitrite NEG Urine Bilirubin NEG Urine Urobilinogen LESS THAN 2.0 MG/DL Urine Leukocyte Esterase NEG Urine WBC LESS THAN 1 /hpf Urine Squamous Epithelial Cells <1 /hpf Urine Bacteria RARE /hpf Microscopic Urinalysis Comment CULT NOT INDICATED Urine Opiates Screen NEG Urine Barbiturates Screen NEG Urine Amphetamines Screen NEG Urine Benzodiazepines Screen NEG Urine Cocaine Screen NEG Urine Cannabinoids Screen NEG White Blood Count 13.6 TH/MM3 Red Blood Count 4.72 MIL/MM3 Hemoglobin 14.1 GM/DL Hematocrit 41.0 % Mean Corpuscular Volume 87.0 FL Mean Corpuscular Hemoglobin 30.0 PG Mean Corpuscular Hemoglobin Concent 34.5 % Red Cell Distribution Width 13.5 % Platelet Count 365 TH/MM3 Mean Platelet Volume 6.7 FL Neutrophils (%) (Auto) 71.2 % Lymphocytes (%) (Auto) 23.2 % Monocytes (%) (Auto) 4.6 % Eosinophils (%) (Auto) 0.5 % Basophils (%) (Auto) 0.5 % Neutrophils # (Auto) 9.7 TH/MM3 Lymphocytes # (Auto) 3.2 TH/MM3 Monocytes # (Auto) 0.6 TH/MM3 Eosinophils # (Auto) 0.1 TH/MM3 Basophils # (Auto) 0.1 TH/MM3 CBC Comment DIFF FINAL Differential Comment Blood Urea Nitrogen 10 MG/DL Creatinine 1.03 MG/DL Random Glucose 120 MG/DL Total Protein 7.4 GM/DL Albumin 4.0 GM/DL Calcium Level 9.1 MG/DL Alkaline Phosphatase 135 U/L Aspartate Amino Transf (AST/SGOT) 13 U/L Alanine Aminotransferase (ALT/SGPT) 19 U/L Total Bilirubin 0.5 MG/DL Sodium Level 143 MEQ/L Potassium Level 3.6 MEQ/L Chloride Level 110 MEQ/L Carbon Dioxide Level 24.0 MEQ/L Anion Gap 9 MEQ/L Estimat Glomerular Filtration Rate 65 ML/MIN [place] Level 0.4 MEQ/L Mental Status Examination Appearance: Appropriate, Well dressed/well groomed Consciousness: Alert Orientation: Person, Place, Situation Motor Activity: Normal gait Speech: Unremarkable Language: Adequate Fund of Knowledge: Inadequate Attention and Concentration: Adequate Memory: Unremarkable Mood: Appropriate Affect: Appropriate Thought Process & Associations: Intact Thought Content: Appropriate Hallucination Type: None Delusion Type: None Suicidal Ideation: No Suicidal Plan: No Suicidal Intention: No Homicidal Ideation: No Homicidal Plan: No Homicidal Intention: No Insight: Adequate Judgment: Adequate Assessment & Plan Problem List: (1) Adjustment disorder ICD Codes: F43.20 - Adjustment disorder, unspecified Status: Acute Assessment & Plan: On psychiatric evaluation today the patient is irritable, oppositional, but redirectable. The patient reports anger and depression in the context of recent conflicts in her residential facility. She denies anhedonia, denies hopelessness, denies helplessness, denies suicidal and homicidal ideation, denies visual and auditory hallucinations. At this moment the patient seems to be at baseline. I recognize that the patient has an increased risk of aggressive behavior and acting out, but she is compliant with her medications, and she does not meet criteria for involuntary psychiatric admission at this moment. She can continue her psychiatric care as an outpatient. Patient, and also her mother contacted for collateral information, are in agreement with plan. Morales act will be lifted. Assessment & Plan Estimated LOS: days Problem Qualifiers (1) Adjustment disorder: Qualified Codes: F43.21 - Adjustment disorder with depressed mood Colin Bird MD Feb 07, 2018 14:47
== END 2018-02-07 12:11 | disposition home or self-care (01) ==
LOC: NEPC 20:06
DX: F34.81 Disruptive mood dysregulation disorder (principal); F20.0 Paranoid schizophrenia; F43.21 Adjustment disorder with depressed mood; G80.9 Cerebral palsy, unspecified; Z86.73 Personal history of transient ischemic attack (TIA), and cerebral infarction without residual deficits
CPT/HCPCS: 80053; 80178; 80307; 81001; 84703; 85025; 99284

== ENCOUNTER 2018-02-24 16:47 | Emergency (ER) | payer OTHER ==
[~2018-02-24 16:47] MED LIST changes: +ARIP1TAB16 PO; -D 101000; +D 101000 PO; +DOCU100C15 PO; +LITH600C PO
[2018-02-24 16:56] VITALS: BP 171/95; PULSE 91; RESP 16; TEMP 98.3; O2SAT 98
[2018-02-24] MEDS ORDERED: OMEP20TA93 PO (17:13)
[2018-02-24] MEDS ORDERED: IBUP1TAB5 PO (17:13)
[2018-02-24] MEDS ORDERED: LORA0.5T PO (17:13)
[2018-02-24] MEDS ORDERED: TYLE325T PO (17:13)
[2018-02-24] MEDS ORDERED: LOPE2CAP PO (17:13)
[2018-02-24] MEDS ORDERED: MILKSUS PO (17:13)
[2018-02-24] MEDS ORDERED: CLIN1SOL TOPICAL (17:13)
[2018-02-24] MEDS ORDERED: SODIUM CHLORIDE 0.9% FLUSH 10 ML FLUSH IV FLUSH PRN (17:30)
[2018-02-24 18:11] LABS: BASOPHIL # 0.1 TH/MM3 (0-0.2); BASOPHIL % 0.6 % (0.0-2.0); EOSINOPHIL # 0.2 TH/MM3 (0-0.4); EOSINOPHIL % 1.5 % (0.0-4.0); HEMOGLOBIN 13.9 GM/DL (11.6-15.3); LYMPH % 24.7 % (9.0-44.0); LYMPHOCYTE # 2.6 TH/MM3 (1.0-4.8); MEAN CELL VOLUME 88.8 FL (80.0-100.0); MEAN CORPUSCULAR HGB CONC 33.8 % (32.0-36.0); MEAN PLATELET VOLUME 7.1 FL (7.0-11.0); MONO % 5.6 % (0.0-8.0); MONOCYTE # 0.6 TH/MM3 (0-0.9); NEUT % 67.6 % (16.0-70.0); PLATELET COUNT 329 TH/MM3 (150-450); RED BLOOD COUNT 4.62 MIL/MM3 (4.00-5.30); RED CELL DISTRIBUTION WIDTH 13.7 % (11.6-17.2); WHITE BLOOD COUNT 10.4 TH/MM3 (4.0-11.0)
[2018-02-24 18:21] LABS: ALBUMIN 4.2 GM/DL (3.4-5.0); ALT (GPT) 19 U/L (10-53); AST (GOT) 12 U/L (15-37); BICARBONATE 28.5 MEQ/L (21.0-32.0); BLOOD UREA NITROGEN 9 MG/DL (7-18); CALCIUM 9.5 MG/DL (8.5-10.1); CHLORIDE 109 MEQ/L (98-107); CREATININE 1.07 MG/DL (0.50-1.00); GLOMERULAR FILTRATION RATE 62 ML/MIN (>89); GLUCOSE,RANDOM 89 MG/DL (74-106); SODIUM (NA) 144 MEQ/L (136-145)
[2018-02-24 18:23] LABS: ALKALINE PHOSPHATASE 130 U/L (45-117); TOTAL BILIRUBIN ADULT 0.4 MG/DL (0.2-1.0); TOTAL PROTEIN 7.4 GM/DL (6.4-8.2)
[2018-02-24 18:33] LABS: INTERNATIONAL NORMALIZED RATIO 1.1 RATIO; PROTHROMBIN TIME - PATIENT 10.8 SEC (9.8-11.6)
[2018-02-24 18:46] LABS: BACTERIA, URINE OCC /hpf; BILIRUBIN, URINE NEG (NEG); BLOOD, URINE NEG (NEG); GLUCOSE,URINE NEG (NEG); KETONE, URINE NEG (NEG); NITRITE,URINE NEG (NEG); URINE COLOR COLORLESS (YELLW/STRAW); URINE LEUKOCYTE ESTERASE NEG (NEG)
--- NOTE | 2018-02-24 19:03 | PD ---
HPI Chief Complaint: Abnormal Results Time Seen by Provider: 17:03 Travel History International Travel<30 days: No Contact w/Intl Traveler<30days: No Traveled to known affect area: No History of Present Illness HPI 27-year-old female with PMH of MR [facility] of hypernatremia. Patient advocate at bedside states that lab work revealed sodium of 154 today. On exam the patient endorses cramping left lower abdominal pain with bowel movements but has no other physical complaints. PFSH Past Medical History Anxiety: Yes Cerebral Palsy: Yes Cerebrovascular Accident: Yes (at ) Developmental Delay: Yes Diminished Hearing: No Endocrine: No Gastrointestinal Disorders: No Genitourinary: No Headaches: No Immune Disorder: No Musculoskeletal: No Neurologic: Yes (right hand contracture) Psychiatric: Yes (Hx of treatment for Schizoaffective Disorder) Reproductive: No Respiratory: No Immunizations Current: Yes Migraines: No Pancreatitis: Yes Schizophrenia: Yes (HEARING HALLUCINATION SINCE 10 YEARS OLD ) Seizures: Yes (see EMR) ?: Unknown Past Surgical History Cholecystectomy: Yes Thoracic Surgery: Yes (G-TUBE INSERTION AND REMOVAL) Other Surgery: Yes Social History Alcohol Use: No Tobacco Use: No Substance Use: No Allergies-Medications (Allergen,Severity, Reaction): Coded Allergies: Fish Containing Products (Unverified Allergy, Severe, Anaphylaxis, 02/24/18 ) shrimp (Verified Allergy, Intermediate, 02/24/18) Reported Meds & Prescriptions Reported Meds & Active Scripts Active Zyprexa Zydis (Olanzapine) 20 Mg Tab 20 Mg SL HS Lamictal (Lamotrigine) 200 Mg Tab 200 Mg PO BID Levothyroxine (Levothyroxine Sodium) 88 Mcg Tab 88 Mcg PO DAILY Polyethylene Glycol 3350 (Polyethylene Glycol 3350 (Bulk) 1 Gra Gra 3,350 Meq PO DAILY 30 Days Reported Lorazepam 0.5 Mg Tab 0.5 Mg PO TID PRN Ibuprofen 400 Mg Tab 400 Mg PO Q4H PRN Milk of Magnesia Liq (Magnesium Hydroxide) 400 Mg/5 Ml Susp 30 Ml PO DAILY PRN Tylenol (Acetaminophen) 325 Mg Tab 650 Mg PO Q6HR PRN Loperamide (Loperamide HCl) 2 Mg Cap 2 Mg PO DIRECTED PRN One capsule after each loose stool. Not to exceed 8 capsules per day. Clindamycin Topical (Clindamycin Phosphate) 1% Soln 1 Applic TOPICAL BID Omeprazole 20 Mg Tab 20 Mg PO DAILY Aripiprazole 2 Mg Tab 2 Mg PO HS Docusate Sodium 100 Mg Cap 200 Mg PO DAILY Letts Carbonate 600 Mg Cap 600 Mg PO HS Letts Carbonate 300 Mg Cap 300 Mg PO DAILY Depo-Provera Inj (Medroxyprogesterone Inj) 150 Mg/Ml Inj 150 Mg IM Q90D D 1000 (Cholecalciferol) 1,000 Unit Cap 5,000 Unit PO DAILY Review of Systems Except as stated in HPI: all other systems reviewed are Neg Physical Exam Narrative GENERAL: Well-nourished, MR white female in no acute distress. SKIN: Focused skin assessment warm/dry. HEAD: Normocephalic. Atraumatic. EYES: No scleral icterus. No injection or drainage. PERRLA. EOMI. NECK: Supple, trachea midline. No JVD or lymphadenopathy. CARDIOVASCULAR: Regular rate and rhythm without murmurs, gallops, or rubs. RESPIRATORY: Breath sounds clear and equal bilaterally. No accessory muscle use. GASTROINTESTINAL: Abdomen soft, non-tender, nondistended. No palpable masses. Active bowel sounds. MUSCULOSKELETAL: No cyanosis, or edema. Muscle wasting and contracture of the right upper extremity. NEUROLOGICAL: Awake and alert. Cranial nerves II through XII intact. Motor and sensory grossly within normal limits. Five out of 5 muscle strength in all muscle groups. Normal speech. BACK: Nontender without obvious deformity. No CVA tenderness. Data Data Last Documented VS Vital Signs Date Time Temp Pulse Resp B/P (MAP) Pulse Ox O2 Delivery O2 Flow Rate FiO2 02/24/18 19:30 88 14 134/83 (100) 96 02/24/18 16:56 98.3 Orders Orders Complete Blood Count With Diff (02/24/18 17:17) Comprehensive Metabolic Panel (02/24/18 17:17) Prothrombin Time / Inr (Pt) (02/24/18 17:17) Act Partial Throm Time (Ptt) (02/24/18 17:17) Urinalysis - C+S If Indicated (02/24/18 17:17) Iv Access Insert/Monitor (02/24/18 17:17) Ecg Monitoring (02/24/18 17:17) Oximetry (02/24/18 17:17) Sodium Chloride 0.9% Flush (Ns Flush) (02/24/18 17:30) Electrocardiogram (02/24/18 17:17) Ed Discharge Order (02/24/18 19:03) Labs Laboratory Tests Test 02/24/18 17:30 02/24/18 17:36 White Blood Count 10.4 TH/MM3 Red Blood Count 4.62 MIL/MM3 Hemoglobin 13.9 GM/DL Hematocrit 41.0 % Mean Corpuscular Volume 88.8 FL Mean Corpuscular Hemoglobin 30.0 PG Mean Corpuscular Hemoglobin Concent 33.8 % Red Cell Distribution Width 13.7 % Platelet Count 329 TH/MM3 Mean Platelet Volume 7.1 FL Neutrophils (%) (Auto) 67.6 % Lymphocytes (%) (Auto) 24.7 % Monocytes (%) (Auto) 5.6 % Eosinophils (%) (Auto) 1.5 % Basophils (%) (Auto) 0.6 % Neutrophils # (Auto) 7.0 TH/MM3 Lymphocytes # (Auto) 2.6 TH/MM3 Monocytes # (Auto) 0.6 TH/MM3 Eosinophils # (Auto) 0.2 TH/MM3 Basophils # (Auto) 0.1 TH/MM3 CBC Comment DIFF FINAL Differential Comment Prothrombin Time 10.8 SEC Prothromb Time International Ratio 1.1 RATIO Activated Partial Thromboplast Time 23.9 SEC Blood Urea Nitrogen 9 MG/DL Creatinine 1.07 MG/DL Random Glucose 89 MG/DL Total Protein 7.4 GM/DL Albumin 4.2 GM/DL Calcium Level 9.5 MG/DL Alkaline Phosphatase 130 U/L Aspartate Amino Transf (AST/SGOT) 12 U/L Alanine Aminotransferase (ALT/SGPT) 19 U/L Total Bilirubin 0.4 MG/DL Sodium Level 144 MEQ/L Potassium Level 3.5 MEQ/L Chloride Level 109 MEQ/L Carbon Dioxide Level 28.5 MEQ/L Anion Gap 7 MEQ/L Estimat Glomerular Filtration Rate 62 ML/MIN Urine Color COLORLESS Urine Turbidity CLEAR Urine pH 7.0 Urine Specific [place] 1.003 Urine Protein NEG mg/dL Urine Glucose (UA) NEG mg/dL Urine Ketones NEG mg/dL Urine Occult Blood NEG Urine Nitrite NEG Urine Bilirubin NEG Urine Urobilinogen LESS THAN 2.0 MG/DL Urine Leukocyte Esterase NEG Urine WBC LESS THAN 1 /hpf Urine Bacteria OCC /hpf Microscopic Urinalysis Comment CULT NOT INDICATED MDM Medical Decision Making Medical Screen Exam Complete: Yes Emergency Medical Condition: Yes Differential Diagnosis Metabolic derangement versus abnormal lab versus hyponatremia versus other Narrative Course 27-year-old female with PMH of MR [facility] of [facility]natremia. Patient advocate at bedside states that lab work revealed sodium of 154 today. On exam the patient endorses cramping left lower abdominal pain with bowel movements but has no other physical complaints. Vitals reviewed. Patient is hypertensive in triage this resolves in the exam room. Exam is reassuring. Sodium 144 on recheck. No concerning abnormalities of the CBC, CMP, coags or urine. The patient is stable, medically clear, discharged back to her correction facility. Diagnosis Primary Impression: Encounter for medical assessment Referrals: Primary Care Physician Additional Instructions: Rest, hydrate. Return to normal, gentle activity as tolerated. Resume at home medications as previously prescribed. Follow-up with the primary care provider Return to the ED for any urgent or emergent medical condition. Disposition: 01 DISCHARGE HOME Condition: Stable Bryanna Schulz Feb 24, 2018 19:02
[2018-02-24 19:30] VITALS: BP 134/83
--- NOTE | 2018-02-25 16:58 | EKG ---
Date Performed: 02/24/2018 Time Performed: 17:34:20 PTAGE: 27 years EKG: Sinus rhythm NONSPECIFIC ST & T-WAVE ABNORMALITY BORDERLINE ECG Compared to PREVIOUS TRACING , patient is no longer tachycardic. PREVIOUS TRACIN01/09/2018 11.25 DOCTOR: Aishwarya Denson Interpretating Date/Time 02/25/2018 16:57:43
== END 2018-02-24 19:31 | disposition home or self-care (01) ==
LOC: NEPE 16:47
DX: E87.0 Hyperosmolality and hypernatremia (principal); R10.32 Left lower quadrant pain; R94.31 Abnormal electrocardiogram [ECG] [EKG]; F41.9 Anxiety disorder, unspecified; G80.9 Cerebral palsy, unspecified; F20.9 Schizophrenia, unspecified
CPT/HCPCS: 80053; 81001; 85025; 85610; 85730; 93005; 99284

== ENCOUNTER 2018-03-01 13:09 | Emergency (ER) | payer OTHER ==
[~2018-03-01] VITALS: Ht 167.6 cm; Wt 60.0 kg
[~2018-03-01 13:09] MED LIST changes: -CLIN1GEL TOPICAL; +CLIN1SOL TOPICAL; +IBUP1TAB5 PO; +LOPE2CAP PO; -LORA-392 PO; +LORA0.5T PO; +MILKSUS PO; +OMEP20TA93 PO; -PREV5000 PO; +TYLE325T PO
[2018-03-01 13:26] VITALS: BP 147/91; PULSE 100; RESP 17; TEMP 98.1; O2SAT 100
--- NOTE | 2018-03-01 13:54 | PD ---
HPI Chief Complaint: Abnormal Results Time Seen by Provider: 13:40 Travel History International Travel<30 days: No Contact w/Intl Traveler<30days: No Traveled to known affect area: No History of Present Illness HPI 27 year old female presents to the emergency department for evaluation of hypernatremia. Patient was sent by her psychiatrist for hypernatremia 150. [facility] Coordinator states that her lithium was discontinued 2 days ago due to the hypernatremia. She states that her other physicians are out of town so that is why she was referred to the emergency department. She states the patient does drink plenty of fluids throughout the day. The patient complains of being dizzy and has a headache. [facility], this is a chronic complaint for her and not new. No chest pain or shortness breath. No abdominal pain. No nausea, vomiting, diarrhea. No other symptoms or complaints. Moderate severity. PFSH Past Medical History Anxiety: Yes Cerebral Palsy: Yes Cerebrovascular Accident: Yes (at ) Developmental Delay: Yes Diminished Hearing: No Endocrine: No Gastrointestinal Disorders: No Genitourinary: No Headaches: Yes Immune Disorder: No Musculoskeletal: No Neurologic: Yes (right hand contracture) Psychiatric: Yes (Hx of treatment for Schizoaffective Disorder) Reproductive: No Respiratory: No Immunizations Current: Yes Migraines: No Pancreatitis: Yes Schizophrenia: Yes (HEARING HALLUCINATION SINCE 10 YEARS OLD ) Seizures: Yes (see EMR) Tetanus Vaccination: Unknown Influenza Vaccination: Yes ?: Unknown Past Surgical History Cholecystectomy: Yes Thoracic Surgery: Yes (G-TUBE INSERTION AND REMOVAL) Other Surgery: Yes Social History Alcohol Use: No Tobacco Use: No Substance Use: No Allergies-Medications (Allergen,Severity, Reaction): Coded Allergies: Fish Containing Products (Unverified Allergy, Severe, Anaphylaxis, 03/01/18 ) shrimp (Verified Allergy, Intermediate, 03/01/18) Reported Meds & Prescriptions Reported Meds & Active Scripts Active Zyprexa Zydis (Olanzapine) 20 Mg Tab 20 Mg SL HS Lamictal (Lamotrigine) 200 Mg Tab 200 Mg PO BID Levothyroxine (Levothyroxine Sodium) 88 Mcg Tab 88 Mcg PO DAILY Reported Vitamin D-[address] (Cholecalciferol) 1,000 Unit Tab 5,000 Units PO DAILY Dentagel (Sodium Fluoride (Dental)) 1.1 % Gel 1.1 % BID Lorazepam 0.5 Mg Tab 0.5 Mg PO TID PRN Ibuprofen 400 Mg Tab 400 Mg PO Q4H PRN Milk of Magnesia Liq (Magnesium Hydroxide) 400 Mg/5 Ml Susp 30 Ml PO DAILY PRN Tylenol (Acetaminophen) 325 Mg Tab 650 Mg PO Q6HR PRN Loperamide (Loperamide HCl) 2 Mg Cap 2 Mg PO DIRECTED PRN One capsule after each loose stool. Not to exceed 8 capsules per day. Clindamycin Topical (Clindamycin Phosphate) 1% Soln 1 Applic TOPICAL BID Omeprazole 20 Mg Tab 20 Mg PO DAILY Aripiprazole 2 Mg Tab 2 Mg PO HS Docusate Sodium 100 Mg Cap 200 Mg PO DAILY Depo-Provera Inj (Medroxyprogesterone Inj) 150 Mg/Ml Inj 150 Mg IM Q90D Review of Systems Except as stated in HPI: all other systems reviewed are Neg Physical Exam Narrative GENERAL: Well-nourished, well-developed female patient, ambulatory. Afebrile. SKIN: Focused skin assessment warm/dry. HEAD: Normocephalic. Atraumatic EYES: No scleral icterus. No injection or drainage. NECK: Supple, trachea midline. No JVD or lymphadenopathy. CARDIOVASCULAR: Regular rate and rhythm without murmurs, gallops, or rubs. RESPIRATORY: Breath sounds equal bilaterally. No accessory muscle use. Lungs sounds are clear to auscultation. GASTROINTESTINAL: Abdomen soft, non-tender, nondistended. MUSCULOSKELETAL: No cyanosis, or edema. BACK: Nontender without obvious deformity. No CVA tenderness. Data Data Last Documented VS Vital Signs Date Time Temp Pulse Resp B/P (MAP) Pulse Ox O2 Delivery O2 Flow Rate FiO2 03/01/18 13:26 98.1 100 17 147/91 (109) 100 Orders Orders Complete Blood Count With Diff (03/01/18 13:46) Comprehensive Metabolic Panel (03/01/18 13:46) Urinalysis - C+S If Indicated (03/01/18 13:46) [place] (Li) (03/01/18 13:46) Ed Urine Pregnancytest Poc (03/01/18 13:55) Labs Laboratory Tests Test 03/01/18 14:10 03/01/18 14:16 Urine Color COLORLESS Urine Turbidity CLEAR Urine pH 6.0 Urine Specific [place] 1.002 Urine Protein NEG mg/dL Urine Glucose (UA) NEG mg/dL Urine Ketones NEG mg/dL Urine Occult Blood NEG Urine Nitrite NEG Urine Bilirubin NEG Urine Urobilinogen LESS THAN 2.0 MG/DL Urine Leukocyte Esterase NEG Urine RBC LESS THAN 1 /hpf Urine WBC LESS THAN 1 /hpf Urine Squamous Epithelial Cells <1 /hpf Urine Bacteria FEW /hpf Microscopic Urinalysis Comment CULT NOT INDICATED White Blood Count 9.6 TH/MM3 Red Blood Count 4.86 MIL/MM3 Hemoglobin 14.8 GM/DL Hematocrit 42.7 % Mean Corpuscular Volume 87.7 FL Mean Corpuscular Hemoglobin 30.5 PG Mean Corpuscular Hemoglobin Concent 34.8 % Red Cell Distribution Width 13.6 % Platelet Count 354 TH/MM3 Mean Platelet Volume 6.8 FL Neutrophils (%) (Auto) 76.3 % Lymphocytes (%) (Auto) 17.5 % Monocytes (%) (Auto) 4.9 % Eosinophils (%) (Auto) 0.7 % Basophils (%) (Auto) 0.6 % Neutrophils # (Auto) 7.3 TH/MM3 Lymphocytes # (Auto) 1.7 TH/MM3 Monocytes # (Auto) 0.5 TH/MM3 Eosinophils # (Auto) 0.1 TH/MM3 Basophils # (Auto) 0.1 TH/MM3 CBC Comment DIFF FINAL Differential Comment Blood Urea Nitrogen 9 MG/DL Creatinine 0.93 MG/DL Random Glucose 86 MG/DL Total Protein 7.6 GM/DL Albumin 4.3 GM/DL Calcium Level 9.6 MG/DL Alkaline Phosphatase 141 U/L Aspartate Amino Transf (AST/SGOT) 11 U/L Alanine Aminotransferase (ALT/SGPT) 20 U/L Total Bilirubin 0.4 MG/DL Sodium Level 145 MEQ/L Potassium Level 3.4 MEQ/L Chloride Level 109 MEQ/L Carbon Dioxide Level 29.2 MEQ/L Anion Gap 7 MEQ/L Estimat Glomerular Filtration Rate 73 ML/MIN [place] Level LESS THAN 0.1 MEQ/L [facility] Medical Decision Making Medical Screen Exam Complete: Yes Emergency Medical Condition: Yes Medical Record Reviewed: Yes Differential Diagnosis Electrolyte abnormality versus UTI vs. lithium toxicity Narrative Course 27-year-old female presents to the emergency department for evaluation of hypernatremia. CBC, CMP, UA, lithium level are ordered and pending. CBC shows no acute abnormality. CMP is normal sodium of 145. [place] level is less than 0.1. UA is negative for acute infection. Urine test is negative. Patient is stable for discharge as her sodium level is normal. She is instructed to follow with her primary care physician. Her hayden pierson direct bedside verbalizes agreement. Diagnosis Primary Impression: Dizziness Referrals: Primary Care Physician call for appointment Patient Instructions: Dizziness (ED), General Instructions Additional Instructions: Follow-up with your primary care physician. Return to the emergency department for any acute worsening of symptoms. Med/Other Pt SpecificInfo: No Change to Meds Disposition: 01 DISCHARGE HOME Condition: Stable Vernell Lim JERARDO Mar 01, 2018 13:54
[2018-03-01] MEDS ORDERED: VITATAB25 PO (14:33)
[2018-03-01] MEDS ORDERED: DENT1.1G (14:33)
[2018-03-01 14:35] LABS: AUTOMATED NEUTROPHIL # 7.3 TH/MM3 (1.8-7.7); BASOPHIL # 0.1 TH/MM3 (0-0.2); BASOPHIL % 0.6 % (0.0-2.0); EOSINOPHIL # 0.1 TH/MM3 (0-0.4); EOSINOPHIL % 0.7 % (0.0-4.0); HEMATOCRIT 42.7 % (35.0-46.0); HEMOGLOBIN 14.8 GM/DL (11.6-15.3); LYMPH % 17.5 % (9.0-44.0); LYMPHOCYTE # 1.7 TH/MM3 (1.0-4.8); MEAN CELL VOLUME 87.7 FL (80.0-100.0); MEAN CORPUSCULAR HEMOGLOBIN 30.5 PG (27.0-34.0); MEAN CORPUSCULAR HGB CONC 34.8 % (32.0-36.0); MEAN PLATELET VOLUME 6.8 FL (7.0-11.0); MONO % 4.9 % (0.0-8.0); MONOCYTE # 0.5 TH/MM3 (0-0.9); NEUT % 76.3 % (16.0-70.0); PLATELET COUNT 354 TH/MM3 (150-450); RED BLOOD COUNT 4.86 MIL/MM3 (4.00-5.30); RED CELL DISTRIBUTION WIDTH 13.6 % (11.6-17.2); WHITE BLOOD COUNT 9.6 TH/MM3 (4.0-11.0)
[2018-03-01 14:36] LABS: BACTERIA, URINE FEW /hpf; BILIRUBIN, URINE NEG (NEG); BLOOD, URINE NEG (NEG); GLUCOSE,URINE NEG (NEG); KETONE, URINE NEG (NEG); NITRITE,URINE NEG (NEG); SQUAMOUS EPITHELIAL CELL URINE <1 /hpf (0-5); URINE COLOR COLORLESS (YELLW/STRAW); URINE LEUKOCYTE ESTERASE NEG (NEG)
[2018-03-01 15:01] LABS: ALBUMIN 4.3 GM/DL (3.4-5.0); ALKALINE PHOSPHATASE 141 U/L (45-117); ALT (GPT) 20 U/L (10-53); AST (GOT) 11 U/L (15-37); BICARBONATE 29.2 MEQ/L (21.0-32.0); BLOOD UREA NITROGEN 9 MG/DL (7-18); CALCIUM 9.6 MG/DL (8.5-10.1); CHLORIDE 109 MEQ/L (98-107); CREATININE 0.93 MG/DL (0.50-1.00); GLOMERULAR FILTRATION RATE 73 ML/MIN (>89); GLUCOSE,RANDOM 86 MG/DL (74-106); SODIUM (NA) 145 MEQ/L (136-145); TOTAL BILIRUBIN ADULT 0.4 MG/DL (0.2-1.0); TOTAL PROTEIN 7.6 GM/DL (6.4-8.2)
== END 2018-03-01 15:50 | disposition home or self-care (01) ==
LOC: NEPC 13:09
DX: R42 Dizziness and giddiness (principal); G80.9 Cerebral palsy, unspecified; F41.9 Anxiety disorder, unspecified; F20.9 Schizophrenia, unspecified; Z86.73 Personal history of transient ischemic attack (TIA), and cerebral infarction without residual deficits
CPT/HCPCS: 80053; 80178; 81001; 84703; 85025; 99283